=== PATIENT | male | born 1955 | race Caucasian/White ===

== ENCOUNTER 2020-09-27 15:15 | Outpatient (CLI) | payer MEDICARE, SELFPAY ==
--- NOTE | 2020-09-27 15:41 | XRR_ITS ---
PROCEDURE INFORMATION: Exam: XR Chest, 2 Views Exam date and time: 09/27/2020 4:05 PM Age: 65 years old Clinical indication: Other: Mass in neck; Additional info: Localized swelling, mass and lump, neck TECHNIQUE: Imaging protocol: XR of the chest Views: 2 views. COMPARISON: No relevant prior studies available. FINDINGS: Lungs: Unremarkable. No consolidation. Pleural space: Unremarkable. No pleural effusion. No pneumothorax. Heart/Mediastinum: Unremarkable. No cardiomegaly. Bones/joints: Unremarkable. XR/XR chest 2V* [id number] IMPRESSION: No acute findings.
--- NOTE | 2020-09-27 15:41 | XRR_ITS ---
PROCEDURE INFORMATION: Exam: XR Right Mandible, Minimum of 4 Views, Complete Exam date and time: 09/27/2020 4:05 PM Age: 65 years old Clinical indication: Other: Neck/jaw pain; Prior surgery; Additional info: Localized swelling, mass and lump, neck TECHNIQUE: Imaging protocol: XR of the Right mandible, minimum of 4 views. Complete exam. COMPARISON: No relevant prior studies available. FINDINGS: Sinuses: Well aerated. No opacification. Bones/joints: There is an apparent comminuted displaced fracture of the right mandible. The bone components appear displaced. . There tooth implant prosthesis in the anterior central portion of the mandible. Soft tissues: Unremarkable. XR/XR mandible min 4V [id number] IMPRESSION: Comminuted displaced fracture right mandible
[2020-09-27 16:48] LABS: Basophils # 0.1 10^3/uL (0.0-0.1); Basophils % 0.8 %; Eosinophils # 0.3 10^3/uL (0.0-0.8); Eosinophils % 3.2 %; Hematocrit 44.6 % (42.0-52.0); Hemoglobin 14.2 g/dL (11.7-16.6); Lymphocytes # 1.9 10^3/uL (0.8-4.8); Lymphocytes % 24.4 %; Mean Corpuscular HGB Conc 31.8 g/dL (30.0-36.0); Mean Corpuscular Hemoglobin 28.7 pg (28.0-34.0); Mean Corpuscular Volume 90.1 fL (80-94); Mean Platelet Volume 9.7 fL (7.4-10.4); Monocytes # 0.6 10^3/uL (0.2-0.9); Monocytes % 7.8 %; Neutrophils # 4.91 10^3/uL (1.8-7.7); Neutrophils % 63.5 %; Nucleated Red Blood Cells % 0 %; Platelet Count 336 10^3/cmm (130-400); Red Blood Count 4.95 10^6/uL (4.1-5.3); Red Cell Distribution Width 12.9 % (12.1-15.1); White Blood Count 7.7 10^3/uL (4.0-10.0)
[2020-09-27 17:00] LABS: INR 0.98 (0.8-1.2)
[2020-09-27 17:01] LABS: Partial Thromboplastin Time 30.3 SECONDS (23.9-36.7)
[2020-09-27 17:07] LABS: Alanine Aminotransferase 20 U/L (0-41); Albumin Level 4.2 g/dL (3.5-5.2); Alkaline Phosphatase 75 IU/L (40-130); Anion Gap 14.6 (5-19); Aspartate Amino Transferase 17 U/L (0-40); Blood Urea Nitrogen 16 mg/dL (8-23); Calcium 9.5 mg/dL (8.5-10.5); Carbon Dioxide 26 mmol/L (22-29); Chloride 100 mmol/L (98-107); Globulin 3.1 g/dL (1.3-4.6); Glucose 154 mg/dL (65-115); Osmolality Calculated 286 mOsm/kg (285-295); Potassium 4.6 mmol/L (3.5-5.1); Sodium 136 mmol/L (136-145); Total Bilirubin 0.9 mg/dL (0.15-1.2); Total Protein 7.3 g/dL (6.6-8.7)
[2020-09-27 17:44] LABS: Bilirubin Urine Neg (Negative); Blood Urine Neg (Negative); Glucose Urine UA 4+ (Normal); Ketones Urine Negative (Negative); Leukocyte Esterase Urine Negative (Negative); Nitrate Urine Negative (Negative); Protein Urine Trace (Negative); Specific Gravity, Urine 1.015 (1.005-1.030); Urine Appearance Clear (CLEAR); Urine Color Yellow (Yellow); Urobilinogen Urine Norm (Negative); pH Urine 5 (5-7)
[2020-09-27 17:45] LABS: Add Urine Culture? No; Bacteria Urine TRACE /hpf; Squamous Epithelial Cell Urine RARE /hpf (0-5); WBC Urine RARE /hpf (0-5)
== END 2020-09-27 15:16 | disposition home or self-care (01) ==
PROVIDERS: PCP Family Medicine; Visit Provider Specialist
DX: R22.1 Localized swelling, mass and lump, neck (principal); S02.69XA Fracture of mandible of other specified site, initial encounter for closed fracture
CPT/HCPCS: 36415; 70110; 71046; 80053; 81001; 85025; 85610; 85730

== ENCOUNTER 2020-09-29 10:18 | Outpatient (CLI) | payer MEDICARE, SELFPAY ==
--- NOTE | 2020-09-29 10:36 | CT_ITS ---
WS: [id number] CT NECK TECHNIQUE: Contrast-enhanced CT of the neck with coronal and sagittal reformatted images. CLINICAL INFORMATION: LOCALIZED SWELLING, MASS AND LUMP, NECK COMPARISON: None. DLP: 2966.[address] scans at [facility] use at least one of these dose optimization techniques: automat ed exposure control; mA and/or kV adjustment per patient size (includes targeted exams where dose is matched to clinical indication); or iterative reconstruction. FINDINGS: Induration with soft tissue edema overlying the right facial soft tissues centered at the level of th e mandible. Anterior dental implants. Extensive osteopenia with destructive changes and pathologic fr acture involving the right mandibular ramus extending to the angle of the mandible. Associated destru ctive changes suspicious for osteomyelitis. In addition diffuse soft tissue edema involving the right aspect of the mandible with suspected subperiosteal peripheral enhancing phlegmon or abscess. Low-at tenuation collection measures approximately 4.5 x 2.1 CM. Thickening of the adjacent platysma. Reacti ve submandibular lymph nodes. Recommend correlation for infection. Tongue base is normal in appearance. Normal submandibular glands. Parotid glands are normal. Partiall y visualized intracranial contents demonstrate chronic lacunar infarcts in the left arndt radiata. M oderate spondylitic changes cervical spine. No evidence of supraglottic or glottic mass. Normal subgl ottic airway. A few small thyroid nodules largest in the right measuring 8 mm. Otherwise no cervical lymphadenopathy. Lung apices are well aerated. Paranasal sinuses and mastoid air cells well aerated. CT/CT neck w con* [id number] IMPRESSION: 1. Pathologic-appearing fracture involving the right mandibular ramus and angl e of the mandible with mild overlapping fracture fragments. Diffuse demineraliz ation involving the right mandible. 2. Findings suspicious for osteomyelitis with pathologic fracture and subperio steal phlegmon/abscess Adjacent soft tissue induration. Suspected phlegmon/absc ess measures 2.1 x 4.4 CM. 3. Inflammatory stranding and edema in the right aspect of the face. A few tal ctive lymph nodes. 4. Supraglottic and glottic airway are patent. 5. No other acute findings.
[2020-09-29] MEDS: iohexol 300 mg/mL 100 mL Btl IV (11:16)
== END 2020-09-29 10:19 | disposition home or self-care (01) ==
LOC: RADWPI 10:23
PROVIDERS: PCP Family Medicine; Visit Provider Specialist
DX: R22.1 Localized swelling, mass and lump, neck (principal); S02.641A Fracture of ramus of right mandible, initial encounter for closed fracture; X58.XXXA Exposure to other specified factors, initial encounter
CPT/HCPCS: 70491; Q9967

== ENCOUNTER 2020-09-29 12:14 | Emergency (ER) | payer MEDICARE, SELFPAY ==
[2020-09-29] VITALS (18 sets, daily range): BP systolic 134–172; BP diastolic 71–88; PULSE 62–79; RESP 15–18; TEMP 36.3–36.6; O2SAT 95–100; BMI 31.6
--- NOTE | 2020-09-29 12:46 | W.ED.NEUROSD ---
Documented by User: Jagdish Selfsen 09/29/20 18:13 HPI - Neuro Symptoms/Deficit General: Chief Complaint: Neuro Symptoms/Deficit Stated Complaint: Weakness, word salad Time Seen by Provider: 09/29/20 12:39 History of Present Illness: HPI Narrative: 65 year old male in with concerns of stroke like symptoms and confusion. This gentleman is being evaluated for head and neck cancer. The patient was scheduled to have a scan this morning when confusion and word salad developed. The patient is diabetic and hypertensive. No history of stroke previously. His is a retired ER nurse. He had some right sided weakness that has since resolved. Originally he went to [facility] after symptoms onset around 8:[address] was reportedly negative and symptoms improved so he signed out so he could go to get his imaging of this right sided mass that is under evaluation. The patient did have his scan and then it seems the symptoms have returned with confusion and word finding difficulty. Associated symptoms: Deny chest pain or headache(s) Review of Systems General: Reports: 10 or more systems reviewed and unremarkable except in HPI and below Const: Denies: fever(s), chills or body aches Eyes: Denies: change in vision ENMT: Reports: odynophagia Card: Denies: chest pain or palpitations Resp: Denies: dyspnea Musc: Reports: muscle weakness; Denies: neck pain or back pain Neuro: Reports: weakness in extremities, lack of coordination, difficulty walking, confusion, behavioral changes and difficulty communicating thoughts; Denies: headache(s) NIH stroke score NIHSS: Level Of Consciousness - 1a: 0 Level Of Consciousness Questions - 1b: Both Correct Level Of Consciousness Commands - 1c: Both Correct Best Gaze - 2: Normal Visual Pina - 3: No Visual Loss Facial Palsy - 4: Normal Motor Arm Right - 5: No Drift Motor Arm Left - 5: No Drift Motor Leg Right - 6: No Drift Motor Leg Left - 6: No Drift Limb Ataxia - 7: Absent Sensory - 8: Normal Best Language - 9: Mild/Moderate Aphasia Dysarthia - 10: Mild/Moderate Dysarthia Extinction And Inattention - 11: 0 Score: Total Score: 2 Physical Exam Const: COMMON NORMALS: no acute distress, average body habitus, patient oriented x3 and alert HENMT: COMMON NORMALS: normocephalic HEAD & SCALP: normal to inspection and normocephalic Neck/C-Spine: COMMON NORMALS: no meningeal signs Resp: COMMON NORMALS: normal respiratory effort EFFORT & INSPECTION: Yes able to speak in complete sentences Cardio: COMMON NORMALS: regular rate and regular rhythm RATE: regular rate RHYTHM: regular rhythm : COMMON NORMALS: Yes no CVA tenderness BLADDER/KIDNEY EXAM: Yes no CVA tenderness Back/Pelvis: COMMON NORMALS: no CVA tenderness Extremity: COMMON NORMALS: normal to inspection GENERAL: Yes normal exam except as noted Neuro: COMMON NORMALS: patient oriented x3, moves all extremities, no focal motor deficits, no sensory deficits noted and deep tendon reflexes 2+ bilaterally SENSORIUM/ORIENTATION: Yes alert MENINGEAL SIGNS: Yes no meningeal signs COORDINATION/BALANCE: [id number] test normal SPEECH: abnormal speech COORDINATION: [id number] test normal Course Vital Signs: Vital signs: Vital Signs Temperature 97.8 F 09/29/20 12:25 Pulse Rate 62 09/29/20 18:34 Respiratory Rate 18 09/29/20 18:34 Blood Pressure 172/80 09/29/20 18:34 Pulse Oximetry 98 09/29/20 18:34 MDM - Neuro Symptoms/Deficit MDM Narrative: Medical decision making narrative: 65 year old male in with acute stroke like symptoms that have now resolved in the face of possible infection / abscess. Differential diagnosis is broad but includes infectious and inflammatory etiologies of these deficits. Patient signed over to Dr. Randolph for disposition Lab Data: Labs: Lab Results 09/29/20 09/29/20 09/29/20 Range/Units 13:03 13:23 13:23 WBC 7.4 (4.0-10.0) 10^3/ uL RBC 5.00 (4.1-5.3) 10^6/u L Hgb 14.3 (11.7-16.6) g/dL Hct 44.0 (42.0-52.0) % MCV 88.0 (80-94) fL MCH 28.6 (28.0-34.0) pg MCHC 32.5 (30.0-36.0) g/dL RDW 12.7 (12.1-15.1) % Plt Count 321 (130-400) 10^3/c mm MPV 10.0 (7.4-10.4) fL Neut % (Auto) 63.6 % Lymph % (Auto) 24.8 % Collier % (Auto) 7.7 % Eos % (Auto) 3.0 % Baso % (Auto) 0.8 % Neut # (Auto) 4.68 (1.8-7.7) 10^3/u L Lymph # (Auto) 1.8 (0.8-4.8) 10^3/u L Collier # (Auto) 0.6 (0.2-0.9) 10^3/u L Eos # (Auto) 0.2 (0.0-0.8) 10^3/u L Baso # (Auto) 0.1 (0.0-0.1) 10^3/u L Nucleated RBC % (a uto) 0 % Nucleated RBCs # 0.0 /100WBC PT 13.60 (12.1-14.9) SECO NDS INR 1.01 (0.8-1.2) APTT 31.9 (23.9-36.7) SECO NDS Sodium (136-145) mmol/L Potassium (3.5-5.1) mmol/L Chloride (98-107) mmol/L Carbon Dioxide (22-29) mmol/L Anion Gap (5-19) BUN (8-23) mg/dL Creatinine (0.7-1.2) mg/dL GFR Calculation (90-130) mL/min Glucose (65-115) mg/dL POC Glucose 275 H (70-110) mg/dL Calculated Osmolal ity (285-295) mOsm/k g Calcium (8.5-10.5) mg/dL Total Bilirubin (0.15-1.2) mg/dL AST (0-40) U/L ALT (0-41) U/L Alkaline Phosphata se (40-130) IU/L Total Protein (6.6-8.7) g/dL Albumin (3.5-5.2) g/dL Globulin (1.3-4.6) g/dL Urine Color (Yellow) Urine Appearance (CLEAR) Urine pH (5-7) Ur Specific Gravit y (1.005-1.030) Urine Protein (Negative) Urine Glucose (UA) (Normal) Urine Ketones (Negative) Urine Blood (Negative) Urine Nitrate (Negative) Urine Bilirubin (Negative) Urine Urobilinogen (Negative) mg/dL Ur Leukocyte Savana ase (Negative) Urine RBC (0-2) /hpf Urine WBC (0-5) /hpf Ur Squamous Epith Cells (0-5) /hpf Amorphous Sediment Urine Bacteria (NONE) /hpf Urine Opiates Scre en (Negative) ng/mL Ur Barbiturates Sc reen (Negative) ng/mL Ur Phencyclidine S crn (Negative) ng/mL Ur Amphetamines Sc reen (Negative) ng/mL U Benzodiazepines Scrn (Negative) ng/mL Urine Cocaine Scre en (Negative) ng/mL U Marijuana (THC) Screen (Negative) ng/mL 09/29/20 09/29/20 09/29/20 Range/Units 13:23 13:40 13:40 WBC (4.0-10.0) 10^3/ uL RBC (4.1-5.3) 10^6/u L Hgb (11.7-16.6) g/dL Hct (42.0-52.0) % MCV (80-94) fL MCH (28.0-34.0) pg MCHC (30.0-36.0) g/dL RDW (12.1-15.1) % Plt Count (130-400) 10^3/c mm MPV (7.4-10.4) fL Neut % (Auto) % Lymph % (Auto) % Collier % (Auto) % Eos % (Auto) % Baso % (Auto) % Neut # (Auto) (1.8-7.7) 10^3/u L Lymph # (Auto) (0.8-4.8) 10^3/u L Collier # (Auto) (0.2-0.9) 10^3/u L Eos # (Auto) (0.0-0.8) 10^3/u L Baso # (Auto) (0.0-0.1) 10^3/u L Nucleated RBC % (a uto) % Nucleated RBCs # /100WBC PT (12.1-14.9) SECO NDS INR (0.8-1.2) APTT (23.9-36.7) SECO NDS Sodium 135 L (136-145) mmol/L Potassium 4.1 (3.5-5.1) mmol/L Chloride 99 (98-107) mmol/L Carbon Dioxide 25 (22-29) mmol/L Anion Gap 15.1 (5-19) BUN 14 (8-23) mg/dL Creatinine 1.1 (0.7-1.2) mg/dL GFR Calculation 67.0 L (90-130) mL/min Glucose 308 H (65-115) mg/dL POC Glucose (70-110) mg/dL Calculated Osmolal ity 292 (285-295) mOsm/k g Calcium 9.4 (8.5-10.5) mg/dL Total Bilirubin 1.3 H (0.15-1.2) mg/dL AST 16 (0-40) U/L ALT 21 (0-41) U/L Alkaline Phosphata se 82 (40-130) IU/L Total Protein 7.4 (6.6-8.7) g/dL Albumin 4.2 (3.5-5.2) g/dL Globulin 3.2 (1.3-4.6) g/dL Urine Color Yellow (Yellow) Urine Appearance Clear (CLEAR) Urine pH 5 (5-7) Ur Specific Gravit y 1.005 (1.005-1.030) Urine Protein 1+ H (Negative) Urine Glucose (UA) 4+ H (Normal) Urine Ketones Negative (Negative) Urine Blood Neg (Negative) Urine Nitrate Negative (Negative) Urine Bilirubin Neg (Negative) Urine Urobilinogen Norm (Negative) mg/dL Ur Leukocyte Savana ase Negative (Negative) Urine RBC 0-4 H (0-2) /hpf Urine WBC 0-4 H (0-5) /hpf Ur Squamous Epith Cells 0-4 H (0-5) /hpf Amorphous Sediment Not Reportable Urine Bacteria Trace (NONE) /hpf Urine Opiates Scre en Negative (Negative) ng/mL Ur Barbiturates Sc reen Negative (Negative) ng/mL Ur Phencyclidine S crn Negative (Negative) ng/mL Ur Amphetamines Sc reen Negative (Negative) ng/mL U Benzodiazepines Scrn Negative (Negative) ng/mL Urine Cocaine Scre en Negative (Negative) ng/mL U Marijuana (THC) Screen Negative (Negative) ng/mL Discharge Plan Discharge Patient Disposition: Xfer Other Clinical Impression: Acute osteomyelitis of mandible, Abscess of neck Condition: Stable Prescriptions: No Action B12 1 tab PO DAILY@0800 RF: 0 atorvastatin 40 mg tablet 40 mg PO BEDTIME@1999 RF: 0 glipizide 10 mg tablet extended release 24hr 10 mg PO DAILY@0800 RF: 0 tramadol 50 mg tablet 50 mg PO BID@799,1999 RF: 0 amlodipine 10 mg tablet 10 mg PO DAILY@0800 RF: 0 metformin 1,000 mg tablet 1,000 mg PO DAILY@08 RF: 0 metoprolol tartrate 50 mg tablet 50 mg PO BID@799,1999 RF: 0 ramipril 10 mg capsule 10 mg PO BID@799,1999 RF: 0 Vitamin D3 1 tab PO DAILY@0800 RF: 0 Tylenol 325 mg Tablet 325 - 650 mg PO Q4H PRN (Reason: Pain) RF: 0 Referrals: Stephane Murphy MD [Primary Care Provider] - Coding Level of Care Code ED Director Of Home Economics for Chg Fwd Exam Comprehensive Documented by User: Maisha Randolph MD 09/29/20 22:00 HPI - Neuro Symptoms/Deficit General: Chief Complaint: Neuro Symptoms/Deficit Stated Complaint: Weakness, word salad Time Seen by Provider: 09/29/20 12:39 Course Vital Signs: Vital signs: Vital Signs Temperature 97.8 F 09/29/20 12:25 Pulse Rate 62 09/29/20 18:34 Respiratory Rate 18 09/29/20 18:34 Blood Pressure 172/80 09/29/20 18:34 Pulse Oximetry 98 09/29/20 18:34 MDM - Neuro Symptoms/Deficit MDM Narrative: Medical decision making narrative: I took patient over from Dr. Keegan waldron. Patient was pending an MRI. Is looking for MRI study results at 7 PM and they had not been sent to [facility] for some reason so had text sent the MRI. MRI shows no acute findings and no signs of acute stroke. Unsure what is causing patient's intermittent word salad and weakness. Patient not a TPA candidate as this been going on since this morning. I did review his CT scan of his neck that was done earlier today he does have an osteomyelitis over his right mandible along with a pathologic fracture and a 2 x 4 cm phlegmon abscess. I spoke to [facility] and will transfer there for higher level of care as patient needs ENT or OMF. Patient's been protecting his airway here. Patient's blood work here is normal and I started him on Unasyn. Lab Data: Labs: Lab Results 09/29/20 09/29/20 09/29/20 Range/Units 13:03 13:23 13:23 WBC 7.4 (4.0-10.0) 10^3/ uL RBC 5.00 (4.1-5.3) 10^6/u L Hgb 14.3 (11.7-16.6) g/dL Hct 44.0 (42.0-52.0) % MCV 88.0 (80-94) fL MCH 28.6 (28.0-34.0) pg MCHC 32.5 (30.0-36.0) g/dL RDW 12.7 (12.1-15.1) % Plt Count 321 (130-400) 10^3/c mm MPV 10.0 (7.4-10.4) fL Neut % (Auto) 63.6 % Lymph % (Auto) 24.8 % Collier % (Auto) 7.7 % Eos % (Auto) 3.0 % Baso % (Auto) 0.8 % Neut # (Auto) 4.68 (1.8-7.7) 10^3/u L Lymph # (Auto) 1.8 (0.8-4.8) 10^3/u L Collier # (Auto) 0.6 (0.2-0.9) 10^3/u L Eos # (Auto) 0.2 (0.0-0.8) 10^3/u L Baso # (Auto) 0.1 (0.0-0.1) 10^3/u L Nucleated RBC % (a uto) 0 % Nucleated RBCs # 0.0 /100WBC PT 13.60 (12.1-14.9) SECO NDS INR 1.01 (0.8-1.2) APTT 31.9 (23.9-36.7) SECO NDS Sodium (136-145) mmol/L Potassium (3.5-5.1) mmol/L Chloride (98-107) mmol/L Carbon Dioxide (22-29) mmol/L Anion Gap (5-19) BUN (8-23) mg/dL Creatinine (0.7-1.2) mg/dL GFR Calculation (90-130) mL/min Glucose (65-115) mg/dL POC Glucose 275 H (70-110) mg/dL Calculated Osmolal ity (285-295) mOsm/k g Calcium (8.5-10.5) mg/dL Total Bilirubin (0.15-1.2) mg/dL AST (0-40) U/L ALT (0-41) U/L Alkaline Phosphata se (40-130) IU/L Total Protein (6.6-8.7) g/dL Albumin (3.5-5.2) g/dL Globulin (1.3-4.6) g/dL Urine Color (Yellow) Urine Appearance (CLEAR) Urine pH (5-7) Ur Specific Gravit y (1.005-1.030) Urine Protein (Negative) Urine Glucose (UA) (Normal) Urine Ketones (Negative) Urine Blood (Negative) Urine Nitrate (Negative) Urine Bilirubin (Negative) Urine Urobilinogen (Negative) mg/dL Ur Leukocyte Savana ase (Negative) Urine RBC (0-2) /hpf Urine WBC (0-5) /hpf Ur Squamous Epith Cells (0-5) /hpf Amorphous Sediment Urine Bacteria (NONE) /hpf Urine Opiates Scre en (Negative) ng/mL Ur Barbiturates Sc reen (Negative) ng/mL Ur Phencyclidine S crn (Negative) ng/mL Ur Amphetamines Sc reen (Negative) ng/mL U Benzodiazepines Scrn (Negative) ng/mL Urine Cocaine Scre en (Negative) ng/mL U Marijuana (THC) Screen (Negative) ng/mL 09/29/20 09/29/20 09/29/20 Range/Units 13:23 13:40 13:40 WBC (4.0-10.0) 10^3/ uL RBC (4.1-5.3) 10^6/u L Hgb (11.7-16.6) g/dL Hct (42.0-52.0) % MCV (80-94) fL MCH (28.0-34.0) pg MCHC (30.0-36.0) g/dL RDW (12.1-15.1) % Plt Count (130-400) 10^3/c mm MPV (7.4-10.4) fL Neut % (Auto) % Lymph % (Auto) % Collier % (Auto) % Eos % (Auto) % Baso % (Auto) % Neut # (Auto) (1.8-7.7) 10^3/u L Lymph # (Auto) (0.8-4.8) 10^3/u L Collier # (Auto) (0.2-0.9) 10^3/u L Eos # (Auto) (0.0-0.8) 10^3/u L Baso # (Auto) (0.0-0.1) 10^3/u L Nucleated RBC % (a uto) % Nucleated RBCs # /100WBC PT (12.1-14.9) SECO NDS INR (0.8-1.2) APTT (23.9-36.7) SECO NDS Sodium 135 L (136-145) mmol/L Potassium 4.1 (3.5-5.1) mmol/L Chloride 99 (98-107) mmol/L Carbon Dioxide 25 (22-29) mmol/L Anion Gap 15.1 (5-19) BUN 14 (8-23) mg/dL Creatinine 1.1 (0.7-1.2) mg/dL GFR Calculation 67.0 L (90-130) mL/min Glucose 308 H (65-115) mg/dL POC Glucose (70-110) mg/dL Calculated Osmolal ity 292 (285-295) mOsm/k g Calcium 9.4 (8.5-10.5) mg/dL Total Bilirubin 1.3 H (0.15-1.2) mg/dL AST 16 (0-40) U/L ALT 21 (0-41) U/L Alkaline Phosphata se 82 (40-130) IU/L Total Protein 7.4 (6.6-8.7) g/dL Albumin 4.2 (3.5-5.2) g/dL Globulin 3.2 (1.3-4.6) g/dL Urine Color Yellow (Yellow) Urine Appearance Clear (CLEAR) Urine pH 5 (5-7) Ur Specific Gravit y 1.005 (1.005-1.030) Urine Protein 1+ H (Negative) Urine Glucose (UA) 4+ H (Normal) Urine Ketones Negative (Negative) Urine Blood Neg (Negative) Urine Nitrate Negative (Negative) Urine Bilirubin Neg (Negative) Urine Urobilinogen Norm (Negative) mg/dL Ur Leukocyte Savana ase Negative (Negative) Urine RBC 0-4 H (0-2) /hpf Urine WBC 0-4 H (0-5) /hpf Ur Squamous Epith Cells 0-4 H (0-5) /hpf Amorphous Sediment Not Reportable Urine Bacteria Trace (NONE) /hpf Urine Opiates Scre en Negative (Negative) ng/mL Ur Barbiturates Sc reen Negative (Negative) ng/mL Ur Phencyclidine S crn Negative (Negative) ng/mL Ur Amphetamines Sc reen Negative (Negative) ng/mL U Benzodiazepines Scrn Negative (Negative) ng/mL Urine Cocaine Scre en Negative (Negative) ng/mL U Marijuana (THC) Screen Negative (Negative) ng/mL Discharge Plan Discharge Patient Disposition: Xfer Other Clinical Impression: Acute osteomyelitis of mandible, Abscess of neck Condition: Stable Prescriptions: No Action B12 1 tab PO DAILY@0800 RF: 0 atorvastatin 40 mg tablet 40 mg PO BEDTIME@1999 RF: 0 glipizide 10 mg tablet extended release 24hr 10 mg PO DAILY@0800 RF: 0 tramadol 50 mg tablet 50 mg PO BID@ RF: 0 amlodipine 10 mg tablet 10 mg PO DAILY@0800 RF: 0 metformin 1,000 mg tablet 1,000 mg PO DAILY@0800 RF: 0 metoprolol tartrate 50 mg tablet 50 mg PO BID@799,1999 RF: 0 ramipril 10 mg capsule 10 mg PO BID@799,1999 RF: 0 Vitamin D3 1 tab PO DAILY@0800 RF: 0 Tylenol 325 mg Tablet 325 - 650 mg PO Q4H PRN (Reason: Pain) RF: 0 Referrals: Stephane Murphy MD [Primary Care Provider] - Coding Level of Care Code ED Director Of Home Economics for g Fwd Exam Comprehensive
--- NOTE | 2020-09-29 12:47 | MRR_ITS ---
PROCEDURE INFORMATION: Exam: MR Angiogram Head Without Contrast, Arteries Exam date and time: 09/29/2020 3:46 PM Age: 65 years old Clinical indication: Speech disturbance and other: RT jaw pain; Prior surgery; Additional info: Stroke like symptoms, negative CT head TECHNIQUE: Imaging protocol: MR angiogram head without contrast. Exam focused on the arteries. COMPARISON: CT head wo con* [id number] 09/29/2020 8:24 AM FINDINGS: ANTERIOR CIRCULATION: Right internal carotid artery: Intracranial segment is patent with no significant stenosis. No aneurysm. Right middle cerebral artery: No occlusion or significant stenosis. No aneurysm. Right anterior cerebral artery: No occlusion or significant stenosis. No aneurysm. Aplastic right A1 segment. Left internal carotid artery: The left ICA is larger than the right consistent with the left ICA supplying both anterior cerebral arteries. Normal variant. Left middle cerebral artery: No occlusion or significant stenosis. No aneurysm. Left anterior cerebral artery: Dominant left A1 segment which supplies both anterior cerebral arteries. Normal variant. POSTERIOR CIRCULATION: Right vertebral artery: Codominant vertebral arteries. Left vertebral artery: No occlusion or significant stenosis. No aneurysm. Basilar artery: No occlusion or significant stenosis. No aneurysm. Right posterior cerebral artery: No occlusion or significant stenosis. No aneurysm. Left posterior cerebral artery: Direct origin of the left posterior cerebral artery from the anterior circulation. MR/MR angio head wo con [id number] IMPRESSION: No large vessel occlusion.
--- NOTE | 2020-09-29 12:48 | ECG_ITS ---
[facility] Test Date: 2020-09-29 Pat Name: Carl Gill Department: Room: Gender: Male Manager Hydraulic: : 1955 Requested By: Jagdish Ozuna Order Number: [id number] Carmen MD: Katey Olson M.D. Measurements Intervals [place] Rate: 62 P: -16 SC: 189 QRS: 21 QRSD: 97 T: -17 QT: 421 QTc: 429 Interpretive Statements SINUS RHYTHM NONSPECIFIC ST & T-WAVE ABNORMALITY No previous ECG available for comparison Electronically Signed On 09-29-2020 21:26:08 MATERIALS BUYER by Katey Olson M.D. [id number]
[2020-09-29 13:13] LABS: Glucose Point of Care 275 mg/dL (70-110)
[2020-09-29 13:46] LABS: Basophils # 0.1 10^3/uL (0.0-0.1); Basophils % 0.8 %; Eosinophils # 0.2 10^3/uL (0.0-0.8); Hemoglobin 14.3 g/dL (11.7-16.6); Lymphocytes # 1.8 10^3/uL (0.8-4.8); Lymphocytes % 24.8 %; Mean Corpuscular HGB Conc 32.5 g/dL (30.0-36.0); Mean Corpuscular Hemoglobin 28.6 pg (28.0-34.0); Monocytes # 0.6 10^3/uL (0.2-0.9); Monocytes % 7.7 %; Neutrophils # 4.68 10^3/uL (1.8-7.7); Neutrophils % 63.6 %; Nucleated Red Blood Cells % 0 %; Platelet Count 321 10^3/cmm (130-400); Red Cell Distribution Width 12.7 % (12.1-15.1); White Blood Count 7.4 10^3/uL (4.0-10.0)
[2020-09-29 14:06] LABS: INR 1.01 (0.8-1.2)
[2020-09-29 14:07] LABS: Partial Thromboplastin Time 31.9 SECONDS (23.9-36.7)
[2020-09-29 14:15] LABS: Amphetamines Screen Urine Negative (Negative); Barbiturates Screen Urine Negative (Negative); Benzodiazepines Screen Urine Negative (Negative); Cocaine Screen Urine Negative (Negative); Opiate Screen Urine Negative (Negative); PCP Screen Urine Negative (Negative); THC Screen Urine Negative (Negative)
[2020-09-29 14:22] LABS: Alanine Aminotransferase 21 U/L (0-41); Albumin Level 4.2 g/dL (3.5-5.2); Alkaline Phosphatase 82 IU/L (40-130); Anion Gap 15.1 (5-19); Aspartate Amino Transferase 16 U/L (0-40); Blood Urea Nitrogen 14 mg/dL (8-23); Calcium 9.4 mg/dL (8.5-10.5); Carbon Dioxide 25 mmol/L (22-29); Chloride 99 mmol/L (98-107); Globulin 3.2 g/dL (1.3-4.6); Glucose 308 mg/dL (65-115); Osmolality Calculated 292 mOsm/kg (285-295); Potassium 4.1 mmol/L (3.5-5.1); Sodium 135 mmol/L (136-145); Total Bilirubin 1.3 mg/dL (0.15-1.2); Total Protein 7.4 g/dL (6.6-8.7)
[2020-09-29 14:44] LABS: Add Urine Microscopic? YES; Bilirubin Urine Neg (Negative); Blood Urine Neg (Negative); Glucose Urine UA 4+ (Normal); Ketones Urine Negative (Negative); Leukocyte Esterase Urine Negative (Negative); Nitrate Urine Negative (Negative); Protein Urine 1+ (Negative); Specific Gravity, Urine 1.005 (1.005-1.030); Urine Appearance Clear (CLEAR); Urine Color Yellow (Yellow); Urobilinogen Urine Norm (Negative); pH Urine 5 (5-7)
[2020-09-29 14:45] LABS: Add Urine Culture? No; Bacteria Urine TRACE /hpf; RBC Urine 0-4 /hpf (0-2); Squamous Epithelial Cell Urine 0-4 /hpf (0-5); WBC Urine 0-4 /hpf (0-5)
[2020-09-29] MEDS: fentaNYL 50 mcg/mL INJ 2mL IVP (17:57)
--- NOTE | 2020-09-29 18:40 | PC.NURSE ---
PT TO MRI AT 1600. RETURNED TO ED AT 1705.
[2020-09-29] MEDS: ampicillin-sulbactam 3 GM in sodium chloride 0.9% (plus) 50 ML IV (20:53)
[2020-09-29] MEDS: morphine 4 mg/mL SDV 1 mL IVP (21:28)
== END 2020-09-29 22:20 | disposition other institution (70) ==
PROVIDERS: Family Medicine; Emergency Provider Emergency Medicine; PCP Family Medicine
DX: M27.2 Inflammatory conditions of jaws (principal); L02.11 Cutaneous abscess of neck; Z79.899 Other long term (current) drug therapy
CPT/HCPCS: 12345; 36416; 70544; 80053; 80306; 81001; 82962; 85025; 85610; 85730; 93005; 96374; 96375; 99283; 99285; J0295; J2270; J3010

== ENCOUNTER 2020-10-21 09:50 | Outpatient (CLI) | payer MEDICARE, SELFPAY ==
--- NOTE | 2020-10-21 10:01 | CT_ITS ---
WS: [id number] CTA ABDOMINAL AORTA WITH RUNOFF TECHNIQUE: Contrast enhanced CTA of the abdominal aorta with bilateral lower extremity runoff. Multip lanar reformatted images were obtained. MIP reformats were also reviewed. CLINICAL INFORMATION: CEREBROVASCULAR INFARCTION/ACCIDENT COMPARISON: None. DLP: 1659.[address] scans at [facility] use at least one of these dose optimization techniques: automat ed exposure control; mA and/or kV adjustment per patient size (includes targeted exams where dose is matched to clinical indication); or iterative reconstruction. FINDINGS: Distal abdominal aorta is normal in appearance. Sigmoid diverticulosis. No evidence of acut e diverticulitis. RIGHT: Right common iliac artery is patent. Right external iliac artery is patent. Internal iliac art juliocesar is patent. Common femoral artery and superficial femoral arteries are patent. Deep femoral artery is patent. Mild atheromatous disease in the distal SFA and popliteal artery at the adductor hiatus. No flow-limiting stenosis. Popliteal artery is patent to the trifurcation. Moderate calcified atherom atous disease at the trifurcation. Poor lower extremity runoff distally. Poor flow at the level of th e ankle. Dominant peroneal artery. LEFT: Left common iliac artery is patent. External and internal iliac arteries are patent. Dense calc ification in the internal iliac artery. Mild atheromatous disease in the superficial femoral artery p roximally. Superficial femoral artery is patent to the adductor hiatus. Mild atheromatous disease in the popliteal artery without flow-limiting stenosis. Popliteal artery is patent to the trifurcation. Poor intermittent flow to the level of the ankle. CT/[place] [id number] IMPRESSION: 1. Poor bilateral distal runoff to both ankles with atretic calf arteries with intermittent flow. Proximal vessels are patent. 2. No large vessel flow-limiting stenosis to the level of the trifurcation bel ow the knee. 3. Mild atheromatous disease in the superficial femoral arteries and popliteal arteries bilaterally without significant stenosis.
--- NOTE | 2020-10-21 10:01 | USCV_ITS ---
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 The following venous structures were evaluated: common femoral vein, profunda vein, proximal portion of the greater saphenous vein, superficial femoral vein, and the popliteal vein. In addition, the posterior tibial and peroneal trunk were evaluated. Serial compression, augmentation maneuvers, and spectral Doppler flow evaluation were performed. FINDINGS: No DVT seen in any vessel examined CONCLUSIONS No evidence of right lower extremity DVT. No evidence of left lower extremity DVT. Arturo Ortiz MD (Electronically Signed) Final Date: 21 October 2020 17:54 S
[2020-10-21] MEDS: iohexol 350 mg/mL 100 mL Btl IV (11:00)
== END 2020-10-21 09:51 | disposition home or self-care (01) ==
LOC: RAD 09:54
PROVIDERS: PCP Family Medicine; Visit Provider Family Medicine
DX: I63.9 Cerebral infarction, unspecified (principal); Z01.818 Encounter for other preprocedural examination; I70.8 Atherosclerosis of other arteries
CPT/HCPCS: 73706; 93970

== ENCOUNTER 2020-12-22 13:01 | Outpatient (RCR) | payer MEDICARE, SELFPAY ==
[2020-12-22 15:38] LABS: Basophils # 0.1 10^3/uL (0.0-0.1); Basophils % 0.8 %; Eosinophils # 0.4 10^3/uL (0.0-0.8); Eosinophils % 4.5 %; Hematocrit 38.2 % (42.0-52.0); Hemoglobin 12.1 g/dL (11.7-16.6); Lymphocytes # 1.7 10^3/uL (0.8-4.8); Lymphocytes % 21.2 %; Mean Corpuscular HGB Conc 31.7 g/dL (30.0-36.0); Mean Corpuscular Hemoglobin 28.6 pg (28.0-34.0); Mean Corpuscular Volume 90.3 fL (80-94); Mean Platelet Volume 10.4 fL (7.4-10.4); Monocytes # 0.8 10^3/uL (0.2-0.9); Monocytes % 10.6 %; Neutrophils # 4.93 10^3/uL (1.8-7.7); Neutrophils % 62.8 %; Nucleated Red Blood Cells % 0 %; Platelet Count 347 10^3/cmm (130-400); Red Blood Count 4.23 10^6/uL (4.1-5.3); Red Cell Distribution Width 14.7 % (12.1-15.1); White Blood Count 7.8 10^3/uL (4.0-10.0)
[2020-12-22 15:58] LABS: Alanine Aminotransferase 39 U/L (0-41); Albumin Level 3.6 g/dL (3.5-5.2); Alkaline Phosphatase 101 IU/L (40-130); Anion Gap 13.4 (5-19); Aspartate Amino Transferase 20 U/L (0-40); Blood Urea Nitrogen 42 mg/dL (8-23); Calcium 9.4 mg/dL (8.5-10.5); Carbon Dioxide 29 mmol/L (22-29); Chloride 94 mmol/L (98-107); Globulin 3.6 g/dL (1.3-4.6); Glomerular Filtration Rate 96.7 mL/min (90-130); Glucose 224 mg/dL (65-115); Osmolality Calculated 291 mOsm/kg (285-295); Potassium 4.4 mmol/L (3.5-5.1); Sodium 132 mmol/L (136-145); Total Bilirubin 0.5 mg/dL (0.15-1.2); Total Protein 7.2 g/dL (6.6-8.7)
--- NOTE | 2020-12-22 17:15 | ONC CON_ITS ---
Dr. Barraza New Patient Note Patient: Carl Gill Unit #: [id number]: 1955 Dicatated By: Eduardo Barraza M.D.Date of Visit: Dec 22, 2020 Onc MED New Patient/Consult Referring Physician: [facility] History of Present Illness: Mr. Carl Gill, is a 65-year-old gentleman with a history of right oral cavity pain and swelling since June or July 2020, as per patient he was prescribed antibiotics on multiple occasion without any improvement rather pain and swelling in his right oral cavity continue to progress eventually he was referred to ENT for evaluation CT scan of the head and neck done on September 30, 2020 showed soft tissue lesion adjacent to the right mandible causing destruction of the right mandible and an associated pathological fracture and there was no obvious lymphadenopathy in the neck, and on November 01, 2020 he underwent right hemimandibulectomy with right modified radical neck dissection of levels 1 through 5 along with placement of tracheostomy and with right forearm free flap and right pectoralis major flap for reconstruction. 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 1 of 4 level 1A lymph node was involved with malignancy without extranodal extension. 3 additional right neck level 2 lymph nodes were none involved and 15 additional right level 2A lymph nodes that were not involved. To right level 3 lymph nodes were negative and 6 right level 4 lymph node were negative. Primary site was 6.2 cm in size invasive squamous cell carcinoma, moderately differentiated, invading through cortical bone with positive soft tissue margins and bone margins. There was perineural invasion as well as lymphovascular space invasion. There was a lymph node removed with the tumor itself was 1.5 cm in size with extranodal extension present. Overall stage was T4A, N3B, M0 Patient also had episode of stroke just before involving his thalamus, now has recovered and on aspirin and Plavix. Past medical history significant for hypertension, hyperlipidemia, obesity, type 2 diabetes Patient denies smoking but he used to chew tobacco up to diagnosis Denies any mouth sores, denies any dysphagia, denies any chest pain denies any shortness of breath denies any jaundice denies any new bony pains denies any hemoptysis or hematemesis. Past Medical History: Mr. Gill's medical history consists of hyperlipidemia, hypertension, type II diabetes, and stroke in 2019. Past Surgical History: Mr. Gill's surgical/procedural history consists of cholecystectomy, tracheostomy, and right hemimandibulectomy in 2020. Medications: amLODIPine Besylate 1 Tablet (of 5 mg) Oral daily, Aspirin 81 1 Tablet (of 81 mg) Tablet, chewable Oral every am, Atorvastatin Calcium 1 Tablet (of 40 mg) Oral daily, B-12 1 Caplet (of 1000 mcg) Capsule Oral every am, Cholecalciferol 1 Tablet (of 125 mcg ) Oral daily, Clopidogrel Bisulfate 1 Tablet (of 75 mg) Oral daily, Escitalopram Oxalate 1 Tablet (of 10 mg) Oral every am, Glucerna 1.5 Luis Manuel 400 mL Liquid Oral t.i.d. & at bedtime, Lisinopril 1 Tablet (of 5 mg) Oral every am, Melatonin 2 Caplet (of 3 mg) Capsule Oral daily, Metoprolol Tartrate 1 Tablet (of 50 mg) Oral b.i.d., Omeprazole 20 mL (of 2 mg/mL) Suspension Oral every am, Polyethylene Glycol 1 Scoop(s) Powder PRN, QUEtiapine Fumarate 0.5 Tablet (of 25 mg) Oral b.i.d., Senna Plus 2 Caplet (of 50-8.6 mg) Capsule Oral daily Allergies: No Known Allergies. Social History: Mr. Gill is . Mr. Gill has never smoked. He has no history of drinking. used chewing tobacco until time of diagnosis. Family History: Mr. Gill's mother at age 88. Mr. Gill's father at age 83. Review Of Symptoms: Review of Systems is not available for this patient. Vital Signs: Performed on Dec 22, 2020 13:54: 0, 0, 0.00 (LOW), sq.m, 98 %, 63 /min, 18 /min, 142/71 mm(hg) (HIGH), 97.1 F (LOW), and 209 lbs (HIGH). Performance Status: 1 - No physically strenuous activity, but ambulatory and able to carry out light or sedentary work (e.g. office work, light house work). (ECOG) Physical Examination: ENMT - , Status post right radical neck dissection/hemimandibulectomy status post reconstruction, tracheostomy site clean no discharge, Respiratory - Lungs are clear to auscultation, Cardiovascular - Regular rate and rhythm of heart, Abdomen - Soft, bowel sounds present, Extremities - No visible edema. Lab/Imaging: Most recent lab results are not available for this patient. Impression: Invasive squamous cell carcinoma, moderately differentiated status post right hemimandibulectomy with right modified radical neck dissection of levels 1 through 5 along with placement of the tracheostomy and a right forearm free flap and right pectoralis major flap for reconstruction. Done on November 01, [address] [facility] final pathology report showed 6.2 cm size invasive squamous cell carcinoma moderately differentiated p16 negative, invading through the cortical bone with a positive margin and positive soft tissue margin there was perineural invasion as well as lymphovascular space invasion. There was a lymph node removed with the tumor itself size about 1.5 cm with extranodal extension present. 1 of 4 level 1 lymph node was involved with malignancy without extranodal extension. 3 additional right neck level 2 lymph nodes were noninvolved and 15 additional right level 2 lymph node were not involved. To right level 3 nodes were negative and 6 right level 4 lymph nodes were negative. stage p T4a, N3B, M0 IVb History of confusion and stroke on 2019, diagnosed with thalamic stroke Follow-up CT scan of head done on December 02, 2020 showed no evidence of acute intracranial abnormality. Stable appearance of multiple scattered old lacunar infarcts. History of tobacco chew Type 2 diabetes Hypertension Plan: Discussed with patient regarding his disease status and treatment options, patient and his had extensive discussion regarding treatment options with radiation oncology as well as medical oncologist at [facility] in [facility], patient was recommended combined chemoradiation therapy with weekly cisplatin 30 to 40 mg per metered squared. Per patient's convenience, patient decided to come to cancer center in [place] for the treatment., All the side effect possible benefits associated with weekly cisplatin including but not limited to bone marrow suppression, nausea vomiting, renal toxicity, ototoxicity were mentioned, further teaching will done by chemotherapy nurse. We will obtain approval from his insurance prior to the treatment and consider cisplatin 30 mg/m??? weekly concurrent with radiation therapy. Patient scheduled see radiation oncology tomorrow morning. In the meantime we will obtain baseline CBC CMP to ensure adequate renal function test and nursing will evaluate him regarding IV access, patient may need Port-A-Cath placement. He will return to clinic 1 week after combined chemo radiation is initiated with CBC and CMP Signed By: Eduardo Barraza M.D. <<Signature on File>>
--- NOTE | 2020-12-23 14:32 | N.ONRAD NP_ITS ---
Radiation Oncology Consultation Patient Name: Carl Gill Date of : 1955 Date of Service: 12/23/2020 Attending Physician: Reji Payne M.D. Carl Gill was seen in consultation this afternoon evaluation regarding adjuvant head and neck radiotherapy for the management of a recently diagnosed oral cavity carcinoma. The patient was referred to the [facility] in September 2020 for CVA management and progressive right mandibular swelling. CT of the neck ordered on October 04, 2020 revealed a 7.1 cm x 3.4 cm x 5.7 cm soft tissue mass in the buccal mucosa of the right mandible with a lytic erosion of the right mandibular ramus and body associated with a pathological fracture. A PET CT (requested from the outside hospital and independently reviewed in [facility]) completed on October 18, 2019 demonstrated hypermetabolic activity in the mandibular mass without metastatic disease. A biopsy obtained on 10/04/2020 of the right buccal mucosa diagnosed a moderately differentiated keratinizing invasive squamous cell carcinoma. A wide local excision with hemimandibulectomy, unilateral neck dissection, and reconstruction with an osteocutaneous radial free flap replacement was performed on 11/01/2020 by Marlyn Gamble M.D. The pathology (report personally reviewed) confirmed the diagnosis of a 6.2 cm moderately differentiated squamous cell carcinoma with a tumor depth of invasion of 4.1 cm and the presence of lymphovascular/perineural invasion. A total of 32 lymph nodes were harvested with two level I lymph nodes harboring metastatic disease (largest metastatic deposit was 1.5 cm of with one lymph node demonstrating extranodal extension). Surgical margins were positive (bone and soft tissue). The patient presents for discussion regarding consideration for postoperative radiotherapy. I discussed with Mr. Gill the AJCC pathological stage IVB (T4aN3b) of the oral cavity associated with his diagnosis and the National Comprehensive Cancer Network Guidelines for adjuvant chemoradiotherapy in patients with newly resected tumors and adverse features (i.e. positive margins, extranodal extension, lymphovascular invasion/perineural, pN2/pN3, or advanced tumors; pT3-pT4). I also reviewed the classic studies, - the EORTC 87288 and RTOG 9501 trials - that established this recommendation. The EORTC investigation demonstrated an overall survival advantage and improved locoregional control in the combined modality arm, while the RTOG study documented improved disease-free survival and locoregional control in a subgroup of patients with positive margins and extranodal extension. I would endorse a 6 1/2-week course of radiation therapy. Prior to beginning treatment, a radiotherapy planning CT scan with contrast will be acquired to delineate the clinical target volumes. I have requested a Wound Care consultation with reference to post-surgical dehiscence. I reviewed the potential toxicities of head and neck radiotherapy. The patient has verbalized understanding and would like to proceed as advocated. Signed by: Dr. Reji Payne 12/23/2020 2:31:32 PM
== END 2021-01-05 23:59 | disposition home or self-care (01) ==
LOC: ONCMED 13:01
PROVIDERS: PCP Family Medicine; Visit Provider Internal Medicine Hematology & Oncology
DX: C41.1 Malignant neoplasm of mandible (principal); E11.9 Type 2 diabetes mellitus without complications; I10 Essential (primary) hypertension; Z86.73 Personal history of transient ischemic attack (TIA), and cerebral infarction without residual deficits; Z87.891 Personal history of nicotine dependence; Z79.899 Other long term (current) drug therapy
CPT/HCPCS: 80053; 85025; 99205; 99215

== ENCOUNTER 2020-12-30 14:18 | Outpatient (CLI) | payer MEDICARE, SELFPAY | END 2020-12-30 14:19 | disposition home or self-care (01) | LOC: WOUND 14:20 | PROVIDERS: PCP Family Medicine; Visit Provider Nurse Practitioner Family | DX: L98.495 Non-pressure chronic ulcer of skin of other sites with muscle involvement without evidence of necrosis (principal); T81.89XA Other complications of procedures, not elsewhere classified, initial encounter; Y83.8 Other surgical procedures as the cause of abnormal reaction of the patient, or of later complication, without mention of misadventure at the time of the procedure | CPT/HCPCS: 87070; 87075; 87077; 87186; 87205; 99215 ==

== ENCOUNTER 2021-01-06 13:35 | Outpatient (CLI) | payer MEDICARE, SELFPAY | END 2021-01-06 13:36 | disposition home or self-care (01) | LOC: WOUND 13:36 | PROVIDERS: PCP Family Medicine; Visit Provider Thoracic Surgery (Cardiothoracic Vascular Surgery) | DX: T81.89XA Other complications of procedures, not elsewhere classified, initial encounter (principal); Y83.8 Other surgical procedures as the cause of abnormal reaction of the patient, or of later complication, without mention of misadventure at the time of the procedure; L98.495 Non-pressure chronic ulcer of skin of other sites with muscle involvement without evidence of necrosis | CPT/HCPCS: 11042; 11045 ==

== ENCOUNTER 2021-01-13 13:17 | Outpatient (CLI) | payer MEDICARE, SELFPAY | END 2021-01-13 13:18 | disposition home or self-care (01) | LOC: WOUND 13:18 | PROVIDERS: PCP Family Medicine; Visit Provider Thoracic Surgery (Cardiothoracic Vascular Surgery) | DX: T81.89XA Other complications of procedures, not elsewhere classified, initial encounter (principal) | CPT/HCPCS: 11042 ==

== ENCOUNTER 2021-01-14 14:14 | Outpatient (RCR) | payer MEDICARE, SELFPAY | END 2021-02-04 23:59 | disposition home or self-care (01) | LOC: SST 14:14 | PROVIDERS: PCP Family Medicine; Referring Provider Otolaryngology; Visit Provider Otolaryngology | DX: Z98.890 Other specified postprocedural states (principal) | CPT/HCPCS: 92610 ==

== ENCOUNTER 2021-01-20 13:40 | Outpatient (CLI) | payer MEDICARE, SELFPAY | END 2021-01-20 13:41 | disposition home or self-care (01) | LOC: WOUND 13:41 | PROVIDERS: PCP Family Medicine; Visit Provider Thoracic Surgery (Cardiothoracic Vascular Surgery) | DX: T81.89XA Other complications of procedures, not elsewhere classified, initial encounter (principal) | CPT/HCPCS: 97597 ==

== ENCOUNTER 2021-01-27 14:45 | Outpatient (CLI) | payer MEDICARE, SELFPAY | END 2021-01-27 14:46 | disposition home or self-care (01) | LOC: WOUND 14:46 | PROVIDERS: PCP Family Medicine; Visit Provider Thoracic Surgery (Cardiothoracic Vascular Surgery) | DX: T81.89XA Other complications of procedures, not elsewhere classified, initial encounter (principal) | CPT/HCPCS: G0463 ==

== ENCOUNTER 2021-02-07 10:55 | Outpatient (CLI) | payer MEDICARE, SELFPAY ==
[2021-02-07 11:55] LABS: Basophils # 0.1 10^3/uL (0.0-0.1); Basophils % 1.2 %; Eosinophils # 0.7 10^3/uL (0.0-0.8); Eosinophils % 10.4 %; Hematocrit 41.7 % (42.0-52.0); Hemoglobin 12.9 g/dL (11.7-16.6); Lymphocytes # 1.2 10^3/uL (0.8-4.8); Lymphocytes % 19.2 %; Mean Corpuscular HGB Conc 30.9 g/dL (30.0-36.0); Mean Corpuscular Hemoglobin 27.7 pg (28.0-34.0); Mean Corpuscular Volume 89.7 fL (80-94); Mean Platelet Volume 10.8 fL (7.4-10.4); Monocytes # 0.7 10^3/uL (0.2-0.9); Monocytes % 11.1 %; Neutrophils # 3.75 10^3/uL (1.8-7.7); Neutrophils % 57.9 %; Nucleated Red Blood Cells % 0 %; Platelet Count 285 10^3/cmm (130-400); Red Blood Count 4.65 10^6/uL (4.1-5.3); Red Cell Distribution Width 13.8 % (12.1-15.1); White Blood Count 6.5 10^3/uL (4.0-10.0)
[2021-02-07 12:24] LABS: Alanine Aminotransferase 35 U/L (0-41); Albumin Level 3.7 g/dL (3.5-5.2); Alkaline Phosphatase 86 IU/L (40-130); Anion Gap 14.6 (5-19); Aspartate Amino Transferase 25 U/L (0-40); Blood Urea Nitrogen 38 mg/dL (8-23); Calcium 8.9 mg/dL (8.5-10.5); Carbon Dioxide 26 mmol/L (22-29); Chloride 99 mmol/L (98-107); Globulin 3.2 g/dL (1.3-4.6); Glomerular Filtration Rate 96.4 mL/min (90-130); Glucose 110 mg/dL (65-115); Osmolality Calculated 290 mOsm/kg (285-295); Potassium 4.6 mmol/L (3.5-5.1); Sodium 135 mmol/L (136-145); Total Bilirubin 0.6 mg/dL (0.15-1.2); Total Protein 6.9 g/dL (6.6-8.7)
--- NOTE | 2021-02-07 18:35 | ONC FU_ITS ---
Dr. Barraza follow up note Patient: Carl Gill Unit #: [id number]: 1955 Dicatated By: Eduardo Barraza M.D.Date of Visit:February 07, 2021 Onc Med Follow-up/Prog Note History of Present Illness: Mr. Carl Gill, is a 65-year-old gentleman with a history of right oral cavity pain and swelling since June or July 2020, as per patient he was prescribed antibiotics on multiple occasion without any improvement rather pain and swelling in his right oral cavity continue to progress eventually he was referred to ENT for evaluation CT scan of the head and neck done on September 30, 2020 showed soft tissue lesion adjacent to the right mandible causing destruction of the right mandible and an associated pathological fracture and there was no obvious lymphadenopathy in the neck, and on November 01, 2020 he underwent right hemimandibulectomy with right modified radical neck dissection of levels 1 through 5 along with placement of tracheostomy and with right forearm free flap and right pectoralis major flap for reconstruction. 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 1 of 4 level 1A lymph node was involved with malignancy without extranodal extension. 3 additional right neck level 2 lymph nodes were none involved and 15 additional right level 2A lymph nodes that were not involved. To right level 3 lymph nodes were negative and 6 right level 4 lymph node were negative. Primary site was 6.2 cm in size invasive squamous cell carcinoma, moderately differentiated, invading through cortical bone with positive soft tissue margins and bone margins. There was perineural invasion as well as lymphovascular space invasion. There was a lymph node removed with the tumor itself was 1.5 cm in size with extranodal extension present. Overall stage was T4A, N3B, M0 Patient also had episode of stroke just before [place] involving his thalamus, now has recovered and on aspirin and Plavix. Past medical history significant for hypertension, hyperlipidemia, obesity, type 2 diabetes Patient denies smoking but he used to chew tobacco up to diagnosis Denies any mouth sores, denies any dysphagia, denies any chest pain denies any shortness of breath denies any jaundice denies any new bony pains denies any hemoptysis or hematemesis. Came for follow-up, complaining of right neck flap discomfort and swelling. But no fever chills, no nausea or vomiting, no diarrhea constipation, patient being managed by wound care clinic and patient scheduled to see clinician there today for clearance to proceed with adjuvant combined chemoradiation therapy. Medications: amLODIPine Besylate 1 Tablet (of 5 mg) Oral daily, Aspirin 81 1 Tablet (of 81 mg) Tablet, chewable Oral every am, Atorvastatin Calcium 1 Tablet (of 40 mg) Oral daily, B-12 1 Caplet (of 1000 mcg) Capsule Oral every am, Cholecalciferol 1 Tablet (of 125 mcg ) Oral daily, Clopidogrel Bisulfate 1 Tablet (of 75 mg) Oral daily, Escitalopram Oxalate 1 Tablet (of 10 mg) Oral every am, Glucerna 1.5 Luis Manuel 400 mL Liquid Oral t.i.d. & at bedtime, Lisinopril 1 Tablet (of 5 mg) Oral every am, Melatonin 2 Caplet (of 3 mg) Capsule Oral daily, Metoprolol Tartrate 1 Tablet (of 50 mg) Oral b.i.d., Omeprazole 20 mL (of 2 mg/mL) Suspension Oral every am, Polyethylene Glycol 1 Scoop(s) Powder PRN, QUEtiapine Fumarate 0.5 Tablet (of 25 mg) Oral b.i.d., Senna Plus 2 Caplet (of 50-8.6 mg) Capsule Oral daily Allergies: No Known Allergies. Review of Systems: Review of Systems is not available for this patient. Vital Signs: Performed on February 07, 2021 13:03 Height - 72.00 in Temperature - 98.4 F Pulse - 53 /min (LOW) Respiration - 18 /min BP - 122/66 mm(hg) O2 Sat - 98 % Pain - 0 Performance Status: 2 - Ambulatory/capable of all self-care, unable to perform any work activities. Up and about more than 50% of waking hours. (ECOG) Physical Examination: ENMT - Postsurgical changes in the right neck status post flap with some fullness and chronic wound, trach site without discharge, Respiratory - Poor air entry otherwise clear, Cardiovascular - Regular rate and rhythm of heart, Abdomen - Soft, bowel sounds present, Extremities - No visible edema. Lab/Imaging: Most recent lab results are not available for this patient. Impression: Invasive squamous cell carcinoma, moderately differentiated status post right hemimandibulectomy with right modified radical neck dissection of levels 1 through 5 along with placement of the tracheostomy and a right forearm free flap and right pectoralis major flap for reconstruction. Done on November 01, 2020 in [facility] final pathology report showed 6.2 cm size invasive squamous cell carcinoma moderately differentiated p16 negative, invading through the cortical bone with a positive margin and positive soft tissue margin there was perineural invasion as well as lymphovascular space invasion. There was a lymph node removed with the tumor itself size about 1.5 cm with extranodal extension present. 1 of 4 level 1 lymph node was involved with malignancy without extranodal extension. 3 additional right neck level 2 lymph nodes were noninvolved and 15 additional right level 2 lymph node were not involved. To right level 3 nodes were negative and 6 right level 4 lymph nodes were negative. stage p T4a, N3B, M0 IVb History of confusion and stroke on 2019, diagnosed with thalamic stroke Follow-up CT scan of head done on December 02, 2020 showed no evidence of acute intracranial abnormality. Stable appearance of multiple scattered old lacunar infarcts. History of tobacco chew Type 2 diabetes Hypertension Plan: Discussed with patient regarding his labs white blood count 6.5 hemoglobin 12.9 hematocrit 41.7 platelets 285,000 CMP within normal limits Clinically, patient doing reasonably well now with poor surgical complication like chronic wound in the right neck, being treated in wound care clinic, radiation oncology is awaiting wound care clinic clearance before starting radiation therapy along with weekly cisplatin patient is also complaining of infection in the left arm flap site. Case was discussed with Dr. Olmedo, ENT today as per discussion, patient still has a fingertip size chronic wound, as per his discussion with radiation oncology, radiation oncology wants to wait until complete healing but because of complication associated with combined chemoradiation therapy with chronic wound, it was recommended that patient should pursue adjuvant chemotherapy in tertiary care center, where he had his right radical neck dissection done e.g. in [facility]., Patient decided to proceed treatment here, then will consider Port-A-Cath placement once clearance from wound care clinic obtained and radiation oncology agreed to start adjuvant therapy., We already have approval for weekly cisplatin concurrent with radiation therapy Patient will return to clinic 1 week after combined chemoradiation therapy initiated with CBC CMP Signed By: Eduardo Barraza M.D. <<Signature on File>>
== END 2021-02-07 10:56 | disposition home or self-care (01) ==
LOC: ONCMED 10:57
PROVIDERS: PCP Family Medicine; Visit Provider Internal Medicine Hematology & Oncology
DX: C41.1 Malignant neoplasm of mandible (principal); C77.8 Secondary and unspecified malignant neoplasm of lymph nodes of multiple regions; F17.220 Nicotine dependence, chewing tobacco, uncomplicated; E11.9 Type 2 diabetes mellitus without complications; I10 Essential (primary) hypertension; Z79.899 Other long term (current) drug therapy
CPT/HCPCS: 80053; 85025; 99214

== ENCOUNTER 2021-02-10 13:54 | Outpatient (CLI) | payer MEDICARE, SELFPAY | END 2021-02-10 13:55 | disposition home or self-care (01) | LOC: WOUND 13:56 | PROVIDERS: PCP Family Medicine; Visit Provider Thoracic Surgery (Cardiothoracic Vascular Surgery) | DX: T81.89XA Other complications of procedures, not elsewhere classified, initial encounter (principal) | CPT/HCPCS: G0463 ==

== ENCOUNTER 2021-02-15 06:00 | Outpatient (RCR) | payer MEDICARE, SELFPAY | END 2021-03-07 23:59 | disposition home or self-care (01) | LOC: SST 06:00 | PROVIDERS: PCP Family Medicine; Referring Provider Otolaryngology; Visit Provider Otolaryngology | DX: Z93.0 Tracheostomy status (principal) | CPT/HCPCS: 92610 ==

== ENCOUNTER 2021-02-17 13:39 | Outpatient (CLI) | payer MEDICARE, SELFPAY | END 2021-02-17 13:40 | disposition home or self-care (01) | LOC: WOUND 13:40 | PROVIDERS: PCP Family Medicine; Visit Provider Thoracic Surgery (Cardiothoracic Vascular Surgery) | DX: T81.89XA Other complications of procedures, not elsewhere classified, initial encounter (principal) | CPT/HCPCS: G0463 ==

== ENCOUNTER 2021-02-24 14:02 | Outpatient (CLI) | payer MEDICARE, SELFPAY | END 2021-02-24 14:03 | disposition home or self-care (01) | LOC: WOUND 14:04 | PROVIDERS: PCP Family Medicine; Visit Provider Thoracic Surgery (Cardiothoracic Vascular Surgery) | DX: T81.89XA Other complications of procedures, not elsewhere classified, initial encounter (principal); Y83.8 Other surgical procedures as the cause of abnormal reaction of the patient, or of later complication, without mention of misadventure at the time of the procedure | CPT/HCPCS: 99212 ==

== ENCOUNTER 2021-03-03 13:52 | Outpatient (CLI) | payer MEDICARE, SELFPAY | END 2021-03-03 13:53 | disposition home or self-care (01) | LOC: WOUND 13:53 | PROVIDERS: PCP Family Medicine; Visit Provider Thoracic Surgery (Cardiothoracic Vascular Surgery) | DX: T81.89XA Other complications of procedures, not elsewhere classified, initial encounter (principal); Y83.8 Other surgical procedures as the cause of abnormal reaction of the patient, or of later complication, without mention of misadventure at the time of the procedure | CPT/HCPCS: 11043 ==

== ENCOUNTER 2021-03-08 06:00 | Outpatient (RCR) | payer MEDICARE, SELFPAY | END 2021-04-06 23:59 | disposition home or self-care (01) | LOC: SST 06:00 | PROVIDERS: PCP Family Medicine; Referring Provider Otolaryngology; Visit Provider Otolaryngology | DX: Z93.0 Tracheostomy status (principal) | CPT/HCPCS: 92507; 92526 ==

== ENCOUNTER 2021-03-10 13:36 | Outpatient (CLI) | payer MEDICARE, SELFPAY | END 2021-03-10 13:37 | disposition home or self-care (01) | LOC: WOUND 13:37 | PROVIDERS: PCP Family Medicine; Visit Provider Thoracic Surgery (Cardiothoracic Vascular Surgery) | DX: T81.89XA Other complications of procedures, not elsewhere classified, initial encounter (principal); Y83.8 Other surgical procedures as the cause of abnormal reaction of the patient, or of later complication, without mention of misadventure at the time of the procedure | CPT/HCPCS: 99212 ==

== ENCOUNTER 2021-03-17 10:45 | Outpatient (CLI) | payer MEDICARE, SELFPAY ==
--- NOTE | 2021-03-17 10:55 | FL_ITS ---
WS: [id number] Modified barium swallow, 03/17/2021 Clinical Data: Other dysphagia Comparison: None. Fluoroscopy time: 1.5 minutes. Findings: The patient has had resection of his mandible with reconstruction. He experiences incomplete lip seal and weak oropharyngeal function. There is penetration with all liquids and there is a single event o f aspiration. There is piriform sinus pooling. There is easier swallowing with thick liquids. There i s pharyngeal weakness. FL/FL barium swallow modifd [id number] Impression: 1. Weak oropharyngeal function. 2. Penetration with all liquids and a single event of aspiration. 3. Piriform sinus pooling. 4. Easier swallowing with thick liquids. 5. Pharyngeal weakness.
== END 2021-03-17 10:46 | disposition home or self-care (01) ==
LOC: RAD 10:48
PROVIDERS: PCP Family Medicine; Visit Provider Otolaryngology
DX: R13.10 Dysphagia, unspecified (principal)
CPT/HCPCS: 74230; 92611

== ENCOUNTER 2021-03-22 14:01 | Outpatient (CLI) | payer MEDICARE, SELFPAY ==
[2021-03-22 14:46] LABS: Basophils # 0.1 10^3/uL (0.0-0.1); Basophils % 0.9 %; Eosinophils # 0.6 10^3/uL (0.0-0.8); Eosinophils % 8.9 %; Hematocrit 42.4 % (42.0-52.0); Hemoglobin 13.2 g/dL (11.7-16.6); Lymphocytes # 1.2 10^3/uL (0.8-4.8); Lymphocytes % 17.9 %; Mean Corpuscular HGB Conc 31.1 g/dL (30.0-36.0); Mean Corpuscular Hemoglobin 27.6 pg (28.0-34.0); Mean Corpuscular Volume 88.5 fL (80-94); Mean Platelet Volume 11.1 fL (7.4-10.4); Monocytes # 0.7 10^3/uL (0.2-0.9); Neutrophils # 3.99 10^3/uL (1.8-7.7); Neutrophils % 61.3 %; Nucleated Red Blood Cells % 0 %; Platelet Count 244 10^3/cmm (130-400); Red Blood Count 4.79 10^6/uL (4.1-5.3); Red Cell Distribution Width 13.7 % (12.1-15.1); White Blood Count 6.5 10^3/uL (4.0-10.0)
[2021-03-22 15:24] LABS: Alanine Aminotransferase 22 U/L (0-41); Albumin Level 3.7 g/dL (3.5-5.2); Alkaline Phosphatase 81 IU/L (40-130); Anion Gap 12.6 (5-19); Aspartate Amino Transferase 17 U/L (0-40); Blood Urea Nitrogen 38 mg/dL (8-23); Calcium 8.8 mg/dL (8.5-10.5); Carbon Dioxide 29 mmol/L (22-29); Chloride 99 mmol/L (98-107); Globulin 3.1 g/dL (1.3-4.6); Glomerular Filtration Rate 96.4 mL/min (90-130); Glucose 130 mg/dL (65-115); Osmolality Calculated 293 mOsm/kg (285-295); Potassium 4.6 mmol/L (3.5-5.1); Sodium 136 mmol/L (136-145); Total Bilirubin 0.7 mg/dL (0.15-1.2); Total Protein 6.8 g/dL (6.6-8.7)
== END 2021-03-22 14:02 | disposition home or self-care (01) ==
PROVIDERS: PCP Family Medicine; Visit Provider Radiology Radiation Oncology
DX: C41.1 Malignant neoplasm of mandible (principal)
CPT/HCPCS: 80053; 85025

== ENCOUNTER 2021-03-24 13:53 | Outpatient (CLI) | payer MEDICARE, SELFPAY | END 2021-03-24 13:54 | disposition home or self-care (01) | LOC: WOUND 13:54 | PROVIDERS: PCP Family Medicine; Visit Provider Thoracic Surgery (Cardiothoracic Vascular Surgery) | DX: T81.89XA Other complications of procedures, not elsewhere classified, initial encounter (principal); Y83.8 Other surgical procedures as the cause of abnormal reaction of the patient, or of later complication, without mention of misadventure at the time of the procedure | CPT/HCPCS: G0463 ==

== ENCOUNTER → 2021-04-01 15:24 | Outpatient (BNVA) | payer MEDICARE, SELFPAY | PROVIDERS: PCP Family Medicine; Visit Provider Surgery | DX: Z85.819 Personal history of malignant neoplasm of unspecified site of lip, oral cavity, and pharynx (principal); Z20.822 Contact with and (suspected) exposure to COVID-19 | CPT/HCPCS: 87635 ==

== ENCOUNTER 2021-04-06 11:50 | Day surgery (SDC) | payer MEDICARE, SELFPAY ==
[2021-04-05 13:54] VITALS: BMI 27.5
[2021-04-06] VITALS (9 sets, daily range): BP systolic 126–145; BP diastolic 61–76; PULSE 49–68; RESP 14–18; TEMP 36.6–36.8; O2SAT 90–97
--- NOTE | 2021-04-06 | SCC_ITS ---
Procedure Done: Placement of PowerPort in the left subclavian vein 39.4 seconds of fluoroscopic guidance, for a cumulative dose of 5.42 mGy, was provided to Dr. Winchester by the radiology department. C-arm images of the chest were saved for the patient's permanent record. [facility]
[2021-04-06] MEDS: sodium chloride 0.9% 1,000 ML 30 ML IV (12:28)
[2021-04-06 12:31] LABS: Glucose Point of Care 92 mg/dL (70-110)
--- NOTE | 2021-04-06 12:36 | W.PM.OPSUD ---
Surgery/Procedure H&P Update DATE OF PROCEDURE: April 06, 2021 DATE H&P PERFORMED: 04/01/21 H&P UPDATE INFORMATION: I have reviewed H&P completed within last 30 days, I have examined patient prior to procedure and No changes to prior documentation PREOP DIAGNOSIS: Mandibular cancer PLANNED PROCEDURE: Operation Date: 04/06/21 13:30 Proposed Procedures p Portacath Placement [id number] z85.819 k94.23(Not Applicable) - Geovanny Winchester MD s Gastric Tube Exchange(Not Applicable) - Geovanny Winchester MD
--- NOTE | 2021-04-06 13:50 | ANES.PREANE2 ---
Pre-Anesthetic Assessment Pre-Anesthetic Assessment: Height/Weight: Height 1.83 m Weight 92.079 kg Temp Pulse Resp BP Pulse Ox 97.8 F 49 L 18 143/71 97 04/06/21 12:09 04/06/21 12:09 04/06/21 12:09 04/06/21 12:09 04/06/21 12:09 Preop Diagnosis: Mandibular cancer Proposed Procedure: Operation Date: 04/06/21 13:30 Proposed Procedures p Portacath Placement [id number] z85.819 k94.23(Not Applicable) - Geovanny Winchester MD s Gastric Tube Exchange(Not Applicable) - Geovanny Winchester MD Was Beta Thad taken within 24 hours: Yes Was Clonidine taken within 24 hours: N/A Social: Social History: No alcohol and No tobacco Exam: Pre-Anes Outpt Exam: alert, oriented x 3, clear to auscultation bilaterally and regular rate & rhythm Airway: Submandibular: WNL Cervical ROM: WNL MP: 4 Additional comments: H/o head and neck radiation, neck flap and mandible reconstruction, pratt Pulmonary: Pulmonary: COPD CV/HEM: CV/HEM: HTN GI: GI: GERD Metabolic: Metabolic: DM, Hyperlipidemia and Morbid obesity Anesthetic Plan: ASA status: 3 Anesthesia: MAC Risk of > 500 ml blood loss (7ml/kg in children): No Meds/Allergies Current Medications: Current Medications Generic Name Dose Route Start Last Admin Trade Name Freq PRN Reason Stop Dose Admin Sodium Chloride 1,000 mls @ 30 ml s/hr 04/06/21 12:00 04/06/21 12:28 Sodium Chloride 0.9% IV 04/07/21 11:59 30 mls/hr .Q24H EDEN Administration PFSH Anesthesia PFSH: Medical History (Updated 04/02/21 @ 12:59 by Geovanny Winchester MD) Cancer of mandible CVA (cerebral vascular accident) History of oral cancer Hypertension Type 2 diabetes mellitus 2010 Surgical History (Updated 04/01/21 @ 09:56 by Geovanny Winchester MD) History of cholecystectomy lap-2012 History of colonoscopy History of mandibular surgery Social History Smoking and tobacco status: never smoked Quit status (tobacco): has quit using tobacco Data Anesthesia Other Labs: Laboratory Results - last 48 hr 04/06/21 12:25 POC Glucose 92 Cardiac Studies: No Data to Display
--- NOTE | 2021-04-06 14:29 | SC_ITS ---
WS: [id number] Left port insertion, 04/06/2021 Clinical Data: portacath placement Comparison: PA and lateral chest, 09/27/2020. Findings: The left Port-A-Cath enters the left subclavian vein and ends in the superior vena cava. SC/C-arm FL for CVA [id number] Impression: Left Port-A-Cath insertion.
[2021-04-06] MEDS: lidocaine 1% INJ 20 mL 5 ML INTRAVESIC (14:38)
[2021-04-06] MEDS: heparin, porcine 1,000 unit/mL INJ 10 mL 6000 UNIT HE (14:40)
--- NOTE | 2021-04-06 15:06 | P.OP_ITS ---
Operative Report Date of procedure: April 06, 2021 Pre-op Diagnosis: 1. Mandibular cancer Pre-op Diagnosis: 2. Nonfunctioning PEG tube Post-op Diagnosis: 1. Mandibular cancer 2. Nonfunctioning PEG tube Procedure Done: Placement of PowerPort in the left subclavian vein Fluoroscopic guidance and interpretation for placement of catheter Exchange of 20 [place]amanian gastrostomy tube Pathology: none sent Surgeon: Geovanny Winchester Anesthesia: MAC Condition: stable Disposition: PACU Procedure: The patient was taken to the Operating Room and the chest and neck bilaterally were prepped and draped in a sterile manner after the antibiotic had been administered and shoulder rolls had been placed. A total of 10 mL of 1% lidocaine with 0.5% Marcaine was infiltrated under the clavicle on the left side at the site of the planned entry into the subclavian vein. An introducer needle was then used to access the subclavian vein under the clavicle and after withdrawing blood syringe was removed and a guidewire passed under fluoroscopy into the superior vena cava. The site of the planned port was then marked on the chest and a 15 blade was used to make a 3 cm skin incision this was extended into the subcutaneous tissue using electrocautery and a subcutaneous pocket over the pectoralis fascia was created 2-0 Vicryl suture was used to suture the port to the pectoral fascia in the pocket on 3 sides. The catheter, after having been flushed with hep saline, was attached to the tunneler and a tunnel created between the port site and the subclavian vein entry site. Under fluoroscopy the dilator sheath was passed over the guidewire into the proximal superior vena cava. The inner dilator was removed and the sheath left behind and~ the catheter was introduced through the peel-away sheath with the tip in the superior vena cava. The peel-away sheath was removed. The proximal end of the catheter was cut to the right size and was attached to the port. Using a Tipton needle the port was accessed, it withdrew blood easily and flushed easily. A final 5cc of heparin was used to flush the PowerPort. The subcutaneous tissue was approximated using interrupted 3-0 Vicryl sutures and the skin at the introducer site and the port site was closed using subcuticular running 4-0 Monocryl sutures. Surgical glue was applied and the patient was stable throughout the procedure. Fluoroscopic guidance and interpretation was performed for introduction of the guidewire in the left subclavian vein, passage of dilator and placement of catheter tip in the distal superior vena cava. The PEG tube was removed intact by applying gentle traction and 20 [place]ian gastrostomy tube was placed without difficulty. The balloon was inflated with 7 cc of saline. Sterile dressings applied.
[2021-04-06 15:23] LABS: Glucose Point of Care 89 mg/dL (70-110)
[2021-04-06] MEDS: fentaNYL 50 mcg/mL INJ 2mL IVP (15:43)
--- NOTE | 2021-04-06 15:58 | ANE.PACU2 ---
Inpatient post-anesthesia follow up: Airway intact: Yes Vital signs: Temperature 98.3 F Pulse Rate 54 Respiratory Rate 17 Blood Pressure 126/76 Pulse Oximetry 95 Oxygen Delivery Me thod Room Air Oxygen Flow Rate Fraction of Inspir ed Oxygen Hydration adequate: Yes Nausea and vomiting: No Pain level: 1 Mental status: Baseline
== END 2021-04-06 16:12 | disposition home or self-care (01) ==
PROVIDERS: PCP Family Medicine; Visit Provider Surgery
PROC: (CPT 36561; principal; 2021-04-06 13:20)
PROC: (CPT 43762; 2021-04-06 13:20)
DX: Z85.819 Personal history of malignant neoplasm of unspecified site of lip, oral cavity, and pharynx (principal); K94.23 Gastrostomy malfunction; J44.9 Chronic obstructive pulmonary disease, unspecified; I10 Essential (primary) hypertension; K21.9 Gastro-esophageal reflux disease without esophagitis; E11.9 Type 2 diabetes mellitus without complications; E78.5 Hyperlipidemia, unspecified; E66.01 Morbid (severe) obesity due to excess calories; Z87.891 Personal history of nicotine dependence
CPT/HCPCS: 36561; 43762; 36416; 77001; 82962; C1788; J0690; J1644; J2250; J2704; J3010; J3490; J7030

== ENCOUNTER 2021-04-07 13:34 | Outpatient (CLI) | payer MEDICARE, SELFPAY | END 2021-04-07 13:35 | disposition home or self-care (01) | LOC: WOUND 13:35 | PROVIDERS: PCP Family Medicine; Visit Provider Thoracic Surgery (Cardiothoracic Vascular Surgery) | DX: T81.89XA Other complications of procedures, not elsewhere classified, initial encounter (principal); Y83.8 Other surgical procedures as the cause of abnormal reaction of the patient, or of later complication, without mention of misadventure at the time of the procedure | CPT/HCPCS: 97597 ==

== ENCOUNTER 2021-04-28 13:40 | Outpatient (CLI) | payer MEDICARE, SELFPAY | END 2021-04-28 13:41 | disposition home or self-care (01) | LOC: WOUND 13:41 | PROVIDERS: PCP Family Medicine; Visit Provider Thoracic Surgery (Cardiothoracic Vascular Surgery) | DX: T81.89XA Other complications of procedures, not elsewhere classified, initial encounter (principal); Y83.8 Other surgical procedures as the cause of abnormal reaction of the patient, or of later complication, without mention of misadventure at the time of the procedure | CPT/HCPCS: 77336; 77386; 87070; 87075; 87077; 87186; 87205; 97597 ==

== ENCOUNTER 2021-05-04 05:56 | Outpatient (RCR) | payer MEDICARE, SELFPAY ==
--- NOTE | 2021-04-13 | CT_ITS ---
Radiation Therapy Planning CT images; total exam DLP: 968.62 mGy-cm MTDD
[2021-04-18] MEDS: sodium chloride 0.9% 250 ML 75 ML IV (09:09)
[2021-04-18 09:28] LABS: Basophils # 0.1 10^3/uL (0.0-0.1); Basophils % 1.2 %; Eosinophils # 0.7 10^3/uL (0.0-0.8); Eosinophils % 10.1 %; Hematocrit 38.6 % (42.0-52.0); Lymphocytes % 14.5 %; Mean Corpuscular HGB Conc 31.1 g/dL (30.0-36.0); Mean Corpuscular Hemoglobin 27.5 pg (28.0-34.0); Mean Corpuscular Volume 88.3 fL (80-94); Mean Platelet Volume 10.9 fL (7.4-10.4); Monocytes # 0.7 10^3/uL (0.2-0.9); Monocytes % 9.4 %; Neutrophils # 4.48 10^3/uL (1.8-7.7); Neutrophils % 64.7 %; Nucleated Red Blood Cells % 0 %; Platelet Count 303 10^3/cmm (130-400); Red Blood Count 4.37 10^6/uL (4.1-5.3); Red Cell Distribution Width 13.4 % (12.1-15.1); White Blood Count 6.9 10^3/uL (4.0-10.0)
[2021-04-18 09:49] LABS: Alanine Aminotransferase 33 U/L (0-41); Albumin Level 3.5 g/dL (3.5-5.2); Alkaline Phosphatase 83 IU/L (40-130); Anion Gap 12.6 (5-19); Aspartate Amino Transferase 24 U/L (0-40); Blood Urea Nitrogen 41 mg/dL (8-23); Calcium 8.9 mg/dL (8.5-10.5); Carbon Dioxide 28 mmol/L (22-29); Chloride 96 mmol/L (98-107); Globulin 3.3 g/dL (1.3-4.6); Glomerular Filtration Rate 96.4 mL/min (90-130); Glucose 128 mg/dL (65-115); Osmolality Calculated 286 mOsm/kg (285-295); Potassium 4.6 mmol/L (3.5-5.1); Sodium 132 mmol/L (136-145); Total Bilirubin 0.6 mg/dL (0.15-1.2); Total Protein 6.8 g/dL (6.6-8.7)
[2021-04-18] MEDS: sodium chloride 0.9% (100 ml) 100 ML 75 ML ×2 (11:00→11:35)
[2021-04-18] MEDS: palonosetron 0.25 mg/5 mL SDV IV (11:35)
[2021-04-18] MEDS: fosaprepitant 150 MG in sodium chloride 0.9% 150 ML 300 MG IV (11:55)
[2021-04-18] MEDS: FUROsemide 10 mg/mL SDV 2mL 20 MG IV (13:40)
[2021-04-18] MEDS: potassium chloride 20 MEQ in sodium chloride 0.9% 500 ML 250 MEQ IV (13:43)
--- NOTE | 2021-04-19 14:04 | ONCRAD TMN_ITS ---
Radiation Oncology Treatment Management Note Patient Name: Carl Gill Date of : 1955 Date of Service: 04/19/2021 Attending Physician: Reji Payne M.D. 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 A wide local excision with hemimandibulectomy, unilateral neck dissection, and reconstruction with an osteocutaneous radial free flap replacement was performed on 11/01/2020. Pathology confirmed the diagnosis of a 6.2 cm moderately differentiated squamous cell carcinoma with a tumor depth of invasion of 4.1 cm and the presence of lymphovascular/perineural invasion. A total of 32 lymph nodes were harvested with two level I lymph nodes harboring metastatic disease (largest metastatic deposit was 1.5 cm of with one lymph node demonstrating extranodal extension). Surgical margins were positive (bone and soft tissue). The patient has received 4 Gy of a prescribed 66 [place] with an intensity modulated radiotherapy plan utilizing a step and shoot treatment technique. He has been prescribed cisplatin (30 mg/m2) weekly during radiotherapy. Upon review of systems, he denied any complaints related to radiotherapy. On physical examination, the patient weighed 242 lbs. His temperature was 98.4 ???F with a blood pressure of 130/60 mmHg. His pulse was 53 bpm and the respiratory rate was 18. There was no erythema within the treatment valera. Continue post-operative head and neck radiotherapy as prescribed. Signed by: Dr. Reji Payne 04/19/2021 2:02:47 PM
[2021-04-25 08:34] LABS: Basophils % 0.6 %; Eosinophils # 0.6 10^3/uL (0.0-0.8); Eosinophils % 9.1 %; Hematocrit 37.8 % (42.0-52.0); Hemoglobin 11.5 g/dL (11.7-16.6); Lymphocytes # 0.7 10^3/uL (0.8-4.8); Lymphocytes % 10.4 %; Mean Corpuscular HGB Conc 30.4 g/dL (30.0-36.0); Mean Corpuscular Hemoglobin 27.4 pg (28.0-34.0); Mean Corpuscular Volume 90.2 fL (80-94); Mean Platelet Volume 10.9 fL (7.4-10.4); Monocytes # 0.7 10^3/uL (0.2-0.9); Monocytes % 10.6 %; Neutrophils # 4.78 10^3/uL (1.8-7.7); Neutrophils % 68.7 %; Nucleated Red Blood Cells % 0 %; Platelet Count 268 10^3/cmm (130-400); Red Blood Count 4.19 10^6/uL (4.1-5.3)
[2021-04-25] MEDS: sodium chloride 0.9% 250 ML 75 ML IV (08:35)
[2021-04-25 09:15] LABS: Alanine Aminotransferase 24 U/L (0-41); Albumin Level 3.3 g/dL (3.5-5.2); Alkaline Phosphatase 87 IU/L (40-130); Anion Gap 14.8 (5-19); Aspartate Amino Transferase 17 U/L (0-40); Blood Urea Nitrogen 31 mg/dL (8-23); Calcium 8.6 mg/dL (8.5-10.5); Carbon Dioxide 27 mmol/L (22-29); Chloride 96 mmol/L (98-107); Globulin 3.1 g/dL (1.3-4.6); Glomerular Filtration Rate 96.4 mL/min (90-130); Glucose 152 mg/dL (65-115); Osmolality Calculated 286 mOsm/kg (285-295); Potassium 4.8 mmol/L (3.5-5.1); Sodium 133 mmol/L (136-145); Total Bilirubin 0.7 mg/dL (0.15-1.2); Total Protein 6.4 g/dL (6.6-8.7)
[2021-04-25] MEDS: palonosetron 0.25 mg/5 mL SDV IVP (11:54)
[2021-04-25] MEDS: FUROsemide 10 mg/mL SDV 2mL 20 MG IV (13:34)
[2021-04-25] MEDS: potassium chloride 20 MEQ in sodium chloride 0.9% 500 ML 250 MEQ IV (13:37)
--- NOTE | 2021-04-25 18:18 | ONC FU_ITS ---
Dr. Barraza follow up note Patient: Carl Gill Unit #: [id number]: 1955 Dicatated By: Eduardo Barraza M.D.Date of Visit:Apr 25, 2021 Onc Med Follow-up/Prog Note History of Present Illness: Mr. Carl Gill, is a 65-year-old gentleman with a history of right oral cavity pain and swelling since June or July 2020, as per patient he was prescribed antibiotics on multiple occasion without any improvement rather pain and swelling in his right oral cavity continue to progress eventually he was referred to ENT for evaluation CT scan of the head and neck done on September 30, 2020 showed soft tissue lesion adjacent to the right mandible causing destruction of the right mandible and an associated pathological fracture and there was no obvious lymphadenopathy in the neck, and on November 01, 2020 he underwent right hemimandibulectomy with right modified radical neck dissection of levels 1 through 5 along with placement of tracheostomy and with right forearm free flap and right pectoralis major flap for reconstruction. 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 1 of 4 level 1A lymph node was involved with malignancy without extranodal extension. 3 additional right neck level 2 lymph nodes were none involved and 15 additional right level 2A lymph nodes that were not involved. To right level 3 lymph nodes were negative and 6 right level 4 lymph node were negative. Primary site was 6.2 cm in size invasive squamous cell carcinoma, moderately differentiated, invading through cortical bone with positive soft tissue margins and bone margins. There was perineural invasion as well as lymphovascular space invasion. There was a lymph node removed with the tumor itself was 1.5 cm in size with extranodal extension present. Overall stage was T4A, N3B, M0 Patient also had episode of stroke just before involving his thalamus, now has recovered and on aspirin and Plavix. Past medical history significant for hypertension, hyperlipidemia, obesity, type 2 diabetes Patient denies smoking but he used to chew tobacco up to diagnosis Denies any mouth sores, denies any dysphagia, denies any chest pain denies any shortness of breath denies any jaundice denies any new bony pains denies any hemoptysis or hematemesis. Started on combined chemoradiation with weekly cisplatin on 04/18/2021 Came for follow-up, denies any specific complaint except pain/discomfort in the right side of upper neck or face, Percocet every 6 hours is not sufficient otherwise denies any swelling in the right face denies any fever or chills denies any sinus problem denies any sore throat denies any blurred vision or double vision, denies any headaches, denies any right ear discharge or pain, tolerating combined chemoradiation with weekly cisplatin well otherwise Medications: amLODIPine Besylate 1 Tablet (of 5 mg) Oral daily, Aspirin 81 1 Tablet (of 81 mg) Tablet, chewable Oral every am, Atorvastatin Calcium 1 Tablet (of 40 mg) Oral daily, B-12 1 Caplet (of 1000 mcg) Capsule Oral every am, Cholecalciferol 1 Tablet (of 125 mcg ) Oral daily, Clopidogrel Bisulfate 1 Tablet (of 75 mg) Oral daily, Escitalopram Oxalate 1 Tablet (of 10 mg) Oral every am, Glucerna 1.5 Luis Manuel 400 mL Liquid Oral t.i.d. & at bedtime, Lisinopril 1 Tablet (of 5 mg) Oral every am, Melatonin 2 Caplet (of 3 mg) Capsule Oral daily, Metoprolol Tartrate 1 Tablet (of 50 mg) Oral b.i.d., Omeprazole 20 mL (of 2 mg/mL) Suspension Oral every am, oxyCODONE-Acetaminophen 2 Tablet (of 10-325 mg) Oral q 6 hours PRN, Polyethylene Glycol 1 Scoop(s) Powder PRN, QUEtiapine Fumarate 0.5 Tablet (of 25 mg) Oral b.i.d., Senna Plus 2 Caplet (of 50-8.6 mg) Capsule Oral daily Allergies: No Known Allergies. Review of Systems: Review of Systems is not available for this patient. Vital Signs: Performed on Apr 25, 2021 09:32 Height - 72.00 in Weight - 246.2 lbs (HIGH) BSA - 2.33 sq.m BMI - 33.39 (HIGH) Temperature - 97.3 F (LOW) Pulse - 51 /min (LOW) Respiration - 18 /min BP - 150/67 mm(hg) (HIGH) O2 Sat - 94 % (LOW) Pain - 0 Performance Status: 1 - No physically strenuous activity, but ambulatory and able to carry out light or sedentary work (e.g. office work, light house work). (ECOG) Physical Examination: ENMT - No mouth sores, no thrush, postsurgical changes in the neck, no swelling or puffiness seen in the right upper neck, nontender, Respiratory - Lungs are clear to auscultation, Cardiovascular - Regular rate and rhythm of heart, Abdomen - Soft, bowel sounds present, Extremities - No visible edema. Lab/Imaging: Test performed on Apr 18, 2021 09:04 Sodium 132 mmol/L Potassium 4.6 mmol/L Chloride 96 mmol/L CO2 28 mmol/L Anion Gap 12.6 BUN 41 mg/dL Creatinine 0.8 mg/dL Cr Clearance (Est) 120.1500 mL/min eGFR 96.4 mL/min Glucose 128 mg/dL Osmolality - Calculated 286 mOsm/kg Calcium 8.9 mg/dL Protein, Total 6.8 g/dL Albumin 3.5 g/dL Globulin 3.3 g/dL Bilirubin, Total 0.6 mg/dL ALT (SGPT) 33 U/L AST (SGOT) 24 U/L Alkaline Phosphatase 83 IU/L WBC 6.9 10 3/uL RBC 4.37 10 6/uL HGB 12.0 g/dL HCT 38.6 % MCV 88.3 fL MCH 27.5 pg MCHC 31.1 g/dL RDW 13.4 % Platelet Count 303 10 3/cmm MPV 10.9 fL Neutrophils 4.48 10 3/uL Lymphocytes 1.0 10 3/uL Monocytes 0.7 10 3/uL Eosinophils 0.7 10 3/uL Basophils 0.1 10 3/uL Neutrophil % 64.7 % Lymphocyte % 14.5 % Monocyte % 9.4 % Eosinophil % 10.1 % Basophils % 1.2 % NRBC % 0 % Impression: Invasive squamous cell carcinoma, moderately differentiated status post right hemimandibulectomy with right modified radical neck dissection of levels 1 through 5 along with placement of the tracheostomy and a right forearm free flap and right pectoralis major flap for reconstruction. Done on November 01, 2020 in [facility] final pathology report showed 6.2 cm size invasive squamous cell carcinoma moderately differentiated p16 negative, invading through the cortical bone with a positive margin and positive soft tissue margin there was perineural invasion as well as lymphovascular space invasion. There was a lymph node removed with the tumor itself size about 1.5 cm with extranodal extension present. 1 of 4 level 1 lymph node was involved with malignancy without extranodal extension. 3 additional right neck level 2 lymph nodes were noninvolved and 15 additional right level 2 lymph node were not involved. To right level 3 nodes were negative and 6 right level 4 lymph nodes were negative. stage p T4a, N3B, M0 IVb Started on combined chemoradiation with weekly cisplatin on 04/18/2021 History of confusion and stroke on [email or web address], diagnosed with thalamic stroke Follow-up CT scan of head done on December 02, 2020 showed no evidence of acute intracranial abnormality. Stable appearance of multiple scattered old lacunar infarcts. History of tobacco chew Type 2 diabetes Hypertension Plan: Discussed with patient regarding his labs white blood count 7 hemoglobin 11.5 marker 37.8 platelets 268,000 CMP within normal limits Clinically, patient doing well with no new signs symptom, tolerating combined chemoradiation with weekly cisplatin well, will proceed with the next weekly dose of cisplatin today return to clinic in 1 week with CBC CMP, as well as right upper neck/facial pain is concerned etiology is unclear, now being treated with Percocet every every 6 hours, patient was advised to try every 4 hours if there is no improvement, will request ENT for evaluation. Signed By: Eduardo Barraza M.D. <<Signature on File>>
--- NOTE | 2021-04-26 14:24 | ONCRAD TMN_ITS ---
Radiation Oncology Weekly Treatment Management Patient: Bridget Antoine MR#: [id number] : 1955> Attending Physician: Dr. Pb Phillips Date of Service: 04/26/2021 Referring Physician(s) : Eduardo Barraza M.D. Diagnosis: C41.1 - Malignant neoplasm of mandible, Diagnosed 12/22/2020 (Active) Radiotherapy to date: Course: Oral Cavity 2020, Treatment Site: Oral Cavity, Ref. ID: [id number], Energy: 6X, Dose/Fx (cGy): 200, #Fx: , Dose Correction (cGy): 0, Total Dose (cGy): 1,400, Start Date: 04/18/2021, Elapsed Days: 8 Reason for visit: The patient is being seen today as part of their regularly scheduled weekly on treatment visits to assess for acute toxicities from radiotherapy. Review of Systems: Mr. Zuleta is stable at this time. He has noticed slight mouth dryness. He has also noted some right ear pain. His weight is stable. His primary nutrition comes through his PEG tube. He can take liquids, ice cream and yogurt per mouth. He has no complaints regarding the surgical wound in the oral cavity and neck. He has no complaints regarding the 2 donor sites. Vital Signs: Performed on 04/26/2021 1:52 PM BMI - 33.771 kg/m2 (high), Height - 72.00 in, Weight - 249.0 lbs, Temperature - 98.5 f, Pulse - 58, Respiration - 20, O2 Sat - 95 % (low), Pain - 0 and BP - 125/ 80 mm(hg). Physical Exam: He has stable swelling in the right upper anterior neck and in the area of the oral cavity graft. There is no evidence of infection. The neck is soft to palpation and no lymphadenopathy was detected. No yeast or ulcerations noted in the oral cavity. The donor site on the chest looks excellent. The donor site on the arm is wrapped in a bandage but the patient said that it is almost healed. Imaging: Radiation therapy imaging related to accurate target localization (i.e. KV, MV and CBCT) was reviewed. Appropriate changes, if any, were made to ensure treatment accuracy. Plan: Continue radiation as planned. He will continue Miralax for constipation. He had no questions. Signed by: Dr. Pb Phillips 04/26/2021 2:22:46 PM
[2021-05-02 14:07] LABS: Basophils # 0.1 10^3/uL (0.0-0.1); Basophils % 0.7 %; Eosinophils # 0.4 10^3/uL (0.0-0.8); Eosinophils % 5.3 %; Hematocrit 35.9 % (42.0-52.0); Lymphocytes # 0.5 10^3/uL (0.8-4.8); Mean Corpuscular HGB Conc 30.6 g/dL (30.0-36.0); Mean Corpuscular Hemoglobin 27.4 pg (28.0-34.0); Mean Corpuscular Volume 89.5 fL (80-94); Mean Platelet Volume 11.1 fL (7.4-10.4); Monocytes # 0.7 10^3/uL (0.2-0.9); Monocytes % 10.4 %; Neutrophils # 5.08 10^3/uL (1.8-7.7); Neutrophils % 75.5 %; Nucleated Red Blood Cells % 0 %; Platelet Count 248 10^3/cmm (130-400); Red Blood Count 4.01 10^6/uL (4.1-5.3); Red Cell Distribution Width 14.5 % (12.1-15.1); White Blood Count 6.7 10^3/uL (4.0-10.0)
[2021-05-02 14:25] LABS: Alanine Aminotransferase 18 U/L (0-41); Albumin Level 3.4 g/dL (3.5-5.2); Alkaline Phosphatase 80 IU/L (40-130); Anion Gap 13.6 (5-19); Aspartate Amino Transferase 13 U/L (0-40); Blood Urea Nitrogen 24 mg/dL (8-23); Calcium 8.5 mg/dL (8.5-10.5); Carbon Dioxide 26 mmol/L (22-29); Chloride 97 mmol/L (98-107); Glomerular Filtration Rate 112.5 mL/min (90-130); Glucose 128 mg/dL (65-115); Osmolality Calculated 280 mOsm/kg (285-295); Potassium 4.6 mmol/L (3.5-5.1); Sodium 132 mmol/L (136-145); Total Bilirubin 0.4 mg/dL (0.15-1.2); Total Protein 6.4 g/dL (6.6-8.7)
[2021-05-03] MEDS: sodium chloride 0.9% 250 ML 75 ML IV (10:25)
[2021-05-03] MEDS: palonosetron 0.25 mg/5 mL SDV IVP (12:54)
[2021-05-03] MEDS: FUROsemide 10 mg/mL SDV 2mL 20 MG IV (14:37)
[2021-05-03] MEDS: potassium chloride 20 MEQ in sodium chloride 0.9% 500 ML 500 MEQ IV (14:39)
--- NOTE | 2021-05-03 16:35 | ONCRAD TMN_ITS ---
Radiation Oncology Weekly Treatment Management Patient: Elina Gill MR#: [id number] : 1955> Attending Physician: Dr. Pb Phillips Date of Service: 05/03/2021 Referring Physician(s) : Eduardo Barraza Diagnosis: C41.1 - Malignant neoplasm of mandible, Diagnosed 12/22/2020 (Active) Radiotherapy to date: Course: Oral Cavity 2020, Treatment Site: Oral Cavity, Ref. ID: [id number], Energy: 6X, Dose/Fx (cGy): 200, #Fx: , Dose Correction (cGy): 0, Total Dose (cGy): 2,400, Start Date: 04/18/2021, Elapsed Days: 15 Reason for visit: The patient is being seen today as part of their regularly scheduled weekly on treatment visits to assess for acute toxicities from radiotherapy. Review of Systems: Mr. Zuleta had chemotherapy today. He was seen in the chemotherapy suite. He did receive his 12th radiation treatment prior to my seeing him. He has noted worsening dry mouth and has soreness in the oral cavity. He is continuing to get most nutrition through the PEG tube, though he can take fluids and some soft foods by mouth. His fatigue level is moderate. His weight is stable. He has not been using the salt and soda rinses. Vital Signs: Performed on 05/03/2021 9:09 AM Height - 72.00 in, Weight - 244 lbs (low), BSA - 2.32 sq.m, BMI - 33.09 (high), Temperature - 99 f (high), Pulse - 57 /min (low), Respiration - 18 /min, O2 Sat - 95 % (low), Pain - 2, BP - 145/ 64 mm(hg)(high/low), Performed on 05/03/2021 3:27 PM BMI - 33.852 kg/m2 (high), Height - 72.00 in, Weight - 249.6 lbs, Temperature - 96.9 f, Pulse - 51, Respiration - 18, O2 Sat - 96 %, Pain - 0 and BP - 153/ 75 mm(hg)(high/). Physical Exam: The skin graft in the lower facial area appears stable. There is no skin breakdown. There is no significant erythema. He has some difficulty opening his mouth. The graft and the portions of the oral cavity that can be seen do not appear significantly inflamed. I did not see any evidence of yeast or viral ulcerations. No lymph nodes palpated. Imaging: Radiation therapy imaging related to accurate target localization (i.e. KV, MV and CBCT) was reviewed. Appropriate changes, if any, were made to ensure treatment accuracy. Plan: Continue treatment as planned. I strongly encouraged Mr. Gill to use the salt and soda rinses. I explained the multiple benefits. No questions. Signed by: Dr. Pb Phillips 05/03/2021 4:33:36 PM
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
== END 2021-05-07 23:59 | disposition home or self-care (01) ==
LOC: ONCMED 05:56
PROVIDERS: Absent Provider Specialist; PCP Family Medicine; Visit Provider Internal Medicine Hematology & Oncology
DX: Z51.0 Encounter for antineoplastic radiation therapy (principal); Z51.11 Encounter for antineoplastic chemotherapy; C41.1 Malignant neoplasm of mandible; E11.9 Type 2 diabetes mellitus without complications; I10 Essential (primary) hypertension; Z87.891 Personal history of nicotine dependence; Z86.73 Personal history of transient ischemic attack (TIA), and cerebral infarction without residual deficits; Z79.899 Other long term (current) drug therapy
CPT/HCPCS: 36591; 77300; 77301; 77334; 77336; 77338; 77386; 77470; 80053; 85025; 96366; 96367; 96375; 96413; 99215; J1100; J1453; J1940; J2469; J3475; J3480; J7030; J7040; J7050; J9060; Q9967

== ENCOUNTER 2021-05-12 13:45 | Outpatient (CLI) | payer MEDICARE, SELFPAY | END 2021-05-12 13:46 | disposition home or self-care (01) | LOC: WOUND 13:46 | PROVIDERS: PCP Family Medicine; Visit Provider Thoracic Surgery (Cardiothoracic Vascular Surgery) | DX: E11.622 Type 2 diabetes mellitus with other skin ulcer (principal); L98.492 Non-pressure chronic ulcer of skin of other sites with fat layer exposed | CPT/HCPCS: 11042 ==

== ENCOUNTER 2021-05-26 13:39 | Outpatient (CLI) | payer MEDICARE, SELFPAY | END 2021-05-26 13:40 | disposition home or self-care (01) | LOC: WOUND 13:40 | PROVIDERS: PCP Family Medicine; Visit Provider Thoracic Surgery (Cardiothoracic Vascular Surgery) | DX: I96 Gangrene, not elsewhere classified (principal); T81.89XD Other complications of procedures, not elsewhere classified, subsequent encounter; Y83.8 Other surgical procedures as the cause of abnormal reaction of the patient, or of later complication, without mention of misadventure at the time of the procedure | CPT/HCPCS: 11043 ==

== ENCOUNTER 2021-06-03 05:40 | Outpatient (RCR) | payer MEDICARE, SELFPAY ==
[2021-05-10 14:03] LABS: Basophils % 0.8 %; Eosinophils # 0.2 10^3/uL (0.0-0.8); Eosinophils % 3.6 %; Hematocrit 36.8 % (42.0-52.0); Hemoglobin 11.1 g/dL (11.7-16.6); Lymphocytes # 0.4 10^3/uL (0.8-4.8); Lymphocytes % 8.4 %; Mean Corpuscular HGB Conc 30.2 g/dL (30.0-36.0); Mean Corpuscular Hemoglobin 27.2 pg (28.0-34.0); Mean Corpuscular Volume 90.2 fL (80-94); Mean Platelet Volume 10.6 fL (7.4-10.4); Monocytes # 0.7 10^3/uL (0.2-0.9); Monocytes % 12.6 %; Neutrophils % 74.4 %; Nucleated Red Blood Cells % 0 %; Platelet Count 218 10^3/cmm (130-400); Red Blood Count 4.08 10^6/uL (4.1-5.3); Red Cell Distribution Width 14.9 % (12.1-15.1); White Blood Count 5.2 10^3/uL (4.0-10.0)
[2021-05-10 14:23] LABS: Alanine Aminotransferase 12 U/L (0-41); Albumin Level 3.5 g/dL (3.5-5.2); Alkaline Phosphatase 78 IU/L (40-130); Anion Gap 13.7 (5-19); Aspartate Amino Transferase 12 U/L (0-40); Blood Urea Nitrogen 21 mg/dL (8-23); Calcium 8.6 mg/dL (8.5-10.5); Carbon Dioxide 27 mmol/L (22-29); Chloride 99 mmol/L (98-107); Glomerular Filtration Rate 112.5 mL/min (90-130); Glucose 151 mg/dL (65-115); Osmolality Calculated 286 mOsm/kg (285-295); Potassium 4.7 mmol/L (3.5-5.1); Sodium 135 mmol/L (136-145); Total Bilirubin 0.4 mg/dL (0.15-1.2); Total Protein 6.5 g/dL (6.6-8.7)
--- NOTE | 2021-05-10 14:43 | ONCRAD TMN_ITS ---
Radiation Oncology Treatment Management Note Patient Name: Carl Gill Date of : 1955 Date of Service: 05/10/2021 Attending Physician: Reji Payne M.D. 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 A wide local excision with hemimandibulectomy, unilateral neck dissection, and reconstruction with an osteocutaneous radial free flap replacement was performed on 11/01/2020. Pathology confirmed the diagnosis of a 6.2 cm moderately differentiated squamous cell carcinoma with a tumor depth of invasion of 4.1 cm and the presence of lymphovascular/perineural invasion. A total of 32 lymph nodes were harvested with two level I lymph nodes harboring metastatic disease (largest metastatic deposit was 1.5 cm of with one lymph node demonstrating extranodal extension). Surgical margins were positive (bone and soft tissue). The patient has received 30 Gy of a prescribed 66 [place] with an intensity modulated radiotherapy plan utilizing a step and shoot treatment technique. He has been prescribed cisplatin (30 mg/m2) weekly during radiotherapy. Upon review of systems, he described pain in his left cheek. On physical examination, the patient weighed 240 lbs. His temperature was 98.3 ???F with a blood pressure of 156/61 mmHg. His pulse was 55 bpm and the respiratory rate was 20. There was no erythema within the treatment valera. Continue post-operative head and neck radiotherapy as planned. I will prescribe oxycodone elixir (5 mg/5 mL) for his pain. I also will request a dietary consult. Signed by: Dr. Reji Payne 05/10/2021 2:43:10 PM
[2021-05-10 15:28] LABS: Slide Review Slide Review Perform
[2021-05-11] MEDS: sodium chloride 0.9% 250 ML 75 ML IV (10:11)
[2021-05-11] MEDS: palonosetron 0.25 mg/5 mL SDV IV (12:04)
[2021-05-11] MEDS: fosaprepitant 150 MG in sodium chloride 0.9% 150 ML 300 MG IV (12:26)
[2021-05-11] MEDS: potassium chloride 20 MEQ in sodium chloride 0.9% 500 ML 250 MEQ IV (14:15)
[2021-05-11] MEDS: FUROsemide 10 mg/mL SDV 2mL 20 MG IV (14:15)
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
[2021-05-17 13:52] LABS: Basophils % 0.8 %; Eosinophils # 0.2 10^3/uL (0.0-0.8); Eosinophils % 3.8 %; Hematocrit 35.1 % (42.0-52.0); Lymphocytes # 0.4 10^3/uL (0.8-4.8); Mean Corpuscular HGB Conc 31.3 g/dL (30.0-36.0); Mean Corpuscular Hemoglobin 27.9 pg (28.0-34.0); Mean Corpuscular Volume 89.1 fL (80-94); Mean Platelet Volume 10.4 fL (7.4-10.4); Monocytes # 0.6 10^3/uL (0.2-0.9); Monocytes % 11.7 %; Neutrophils # 3.57 10^3/uL (1.8-7.7); Neutrophils % 74.5 %; Nucleated Red Blood Cells % 0 %; Platelet Count 200 10^3/cmm (130-400); Red Blood Count 3.94 10^6/uL (4.1-5.3); Red Cell Distribution Width 15.5 % (12.1-15.1); White Blood Count 4.8 10^3/uL (4.0-10.0)
[2021-05-17 14:10] LABS: Alanine Aminotransferase 9 U/L (0-41); Albumin Level 3.5 g/dL (3.5-5.2); Alkaline Phosphatase 76 IU/L (40-130); Anion Gap 12.5 (5-19); Aspartate Amino Transferase 11 U/L (0-40); Blood Urea Nitrogen 20 mg/dL (8-23); Calcium 8.7 mg/dL (8.5-10.5); Carbon Dioxide 28 mmol/L (22-29); Chloride 95 mmol/L (98-107); Globulin 3.1 g/dL (1.3-4.6); Glomerular Filtration Rate 134.4 mL/min (90-130); Glucose 139 mg/dL (65-115); Osmolality Calculated 277 mOsm/kg (285-295); Potassium 4.5 mmol/L (3.5-5.1); Sodium 131 mmol/L (136-145); Total Bilirubin 0.4 mg/dL (0.15-1.2); Total Protein 6.6 g/dL (6.6-8.7)
--- NOTE | 2021-05-17 14:21 | ONCRAD TMN_ITS ---
Radiation Oncology Treatment Management Note Patient Name: Carl Gill Date of : 1955 Date of Service: 05/17/2021 Attending Physician: Reji Payne M.D. 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 A wide local excision with hemimandibulectomy, unilateral neck dissection, and reconstruction with an osteocutaneous radial free flap replacement was performed on 11/01/2020. Pathology confirmed the diagnosis of a 6.2 cm moderately differentiated squamous cell carcinoma with a tumor depth of invasion of 4.1 cm and the presence of lymphovascular/perineural invasion. A total of 32 lymph nodes were harvested with two level I lymph nodes harboring metastatic disease (largest metastatic deposit was 1.5 cm of with one lymph node demonstrating extranodal extension). Surgical margins were positive (bone and soft tissue). The patient has received 40 Gy of a prescribed 66 [place] with an intensity modulated radiotherapy plan utilizing a step and shoot treatment technique. He has been prescribed cisplatin (30 mg/m2) weekly during radiotherapy. Upon review of systems, he continues to report jaw pain. On physical examination, the patient weighed 236 lbs. His temperature was 98.5 ???F with a blood pressure of 160/72 mmHg. His pulse was 60 bpm and the respiratory rate was 18. There was no erythema within the treatment valera. Continue post-operative head and neck radiotherapy as prescribed. I will increase the oxycodone elixir to 10 mg. Signed by: Dr. Reji Payne 05/17/2021 2:19:48 PM
[2021-05-17 17:15] LABS: Bilirubin Urine Neg (Negative); Blood Urine Neg (Negative); Glucose Urine UA Norm (Normal); Ketones Urine Negative (Negative); Leukocyte Esterase Urine Negative (Negative); Nitrate Urine Negative (Negative); Protein Urine Neg (Negative); Sulfosalicylic Acid Urine Negative (Negative); Urine Appearance Clear (CLEAR); Urine Color Yellow (Yellow); Urobilinogen Urine 1 mg/dL (Negative); pH Urine 8 (5-7)
[2021-05-17 17:23] LABS: Add Urine Culture? No; WBC Urine RARE /hpf (0-5)
[2021-05-18] MEDS: sodium chloride 0.9% 250 ML 75 ML IV (11:25)
[2021-05-18] MEDS: palonosetron 0.25 mg/5 mL SDV IVP (14:20)
[2021-05-18] MEDS: FUROsemide 10 mg/mL SDV 2mL 20 MG IV (15:50)
[2021-05-18] MEDS: potassium chloride 20 MEQ in sodium chloride 0.9% 500 ML 250 MEQ IV (15:50)
--- NOTE | 2021-05-19 16:53 | ONC FU_ITS ---
Dr. Barraza follow up note Patient: Carl Gill Unit #: [id number]: 1955 Dicatated By: Eduardo Barraza M.D.Date of Visit:May 18, 2021 Onc Med Follow-up/Prog Note History of Present Illness: Mr. Carl Gill, is a 66-year-old gentleman with a history of right oral cavity pain and swelling since June or July 2020, as per patient he was prescribed antibiotics on multiple occasion without any improvement rather pain and swelling in his right oral cavity continue to progress eventually he was referred to ENT for evaluation CT scan of the head and neck done on September 30, 2020 showed soft tissue lesion adjacent to the right mandible causing destruction of the right mandible and an associated pathological fracture and there was no obvious lymphadenopathy in the neck, and on November 01, 2020 he underwent right hemimandibulectomy with right modified radical neck dissection of levels 1 through 5 along with placement of tracheostomy and with right forearm free flap and right pectoralis major flap for reconstruction. 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 1 of 4 level 1A lymph node was involved with malignancy without extranodal extension. 3 additional right neck level 2 lymph nodes were none involved and 15 additional right level 2A lymph nodes that were not involved. To right level 3 lymph nodes were negative and 6 right level 4 lymph node were negative. Primary site was 6.2 cm in size invasive squamous cell carcinoma, moderately differentiated, invading through cortical bone with positive soft tissue margins and bone margins. There was perineural invasion as well as lymphovascular space invasion. There was a lymph node removed with the tumor itself was 1.5 cm in size with extranodal extension present. Overall stage was T4A, N3B, M0 Patient also had episode of stroke just before [place] involving his thalamus, now has recovered and on aspirin and Plavix. Past medical history significant for hypertension, hyperlipidemia, obesity, type 2 diabetes Patient denies smoking but he used to chew tobacco up to diagnosis Denies any mouth sores, denies any dysphagia, denies any chest pain denies any shortness of breath denies any jaundice denies any new bony pains denies any hemoptysis or hematemesis. Started on combined chemoradiation with weekly cisplatin on 04/18/2021 Came for follow-up, denies any specific complaint except sleepy, fatigue, sometimes confusion but no fever chills, no nausea or vomiting, no diarrhea constipation, no jaundice, no dysphagia, right throat pain is under control with current pain medication, tolerating combined chemoradiation with weekly cisplatin well otherwise Medications: amLODIPine Besylate 1 Tablet (of 5 mg) Oral daily, Aspirin 81 1 Tablet (of 81 mg) Tablet, chewable Oral every am, Atorvastatin Calcium 1 Tablet (of 40 mg) Oral daily, B-12 1 Caplet (of 1000 mcg) Capsule Oral every am, Cholecalciferol 1 Tablet (of 125 mcg ) Oral daily, Clopidogrel Bisulfate 1 Tablet (of 75 mg) Oral daily, Doxycycline Hyclate (100 mg) Capsule Oral b.i.d., Escitalopram Oxalate 1 Tablet (of 10 mg) Oral every am, Glucerna 1.5 Luis Manuel 400 mL Liquid Oral t.i.d. & at bedtime, Lisinopril 1 Tablet (of 5 mg) Oral every am, Melatonin 2 Caplet (of 3 mg) Capsule Oral daily, Metoprolol Tartrate 1 Tablet (of 50 mg) Oral b.i.d., Omeprazole 20 mL (of 2 mg/mL) Suspension Oral, oxyCODONE-Acetaminophen 2 Tablet (of 10-325 mg) Tablet Oral q 4 to 6 hours PRN, Polyethylene Glycol 1 Scoop(s) Powder PRN, QUEtiapine Fumarate 0.5 Tablet (of 25 mg) Oral b.i.d., Senna Plus 2 Caplet (of 50-8.6 mg) Capsule Oral daily Allergies: No Known Allergies. Review of Systems: Review of Systems is not available for this patient. Vital Signs: Performed on May 18, 2021 10:15 Height - 72.00 in Weight - 233.8 lbs (LOW) BSA - 2.28 sq.m BMI - 31.71 (HIGH) Temperature - 98 F (LOW) Pulse - 58 /min (LOW) Respiration - 18 /min BP - 145/73 mm(hg) (HIGH) O2 Sat - 97 % Pain - 5 Fatigue - 5 Performance Status: 0 - Fully active, able to carry on all predisease activities without restrictions. (ECOG) Physical Examination: ENMT - Postoperative right neck changes, poor oral hygiene, mild erythema in the throat, Respiratory - Lungs are clear to auscultation, Cardiovascular - Regular rate and rhythm of heart, Abdomen - Soft, bowel sounds present, Extremities - No visible edema. Lab/Imaging: Test performed on Apr 18, 2021 09:04 Sodium 132 mmol/L Potassium 4.6 mmol/L Chloride 96 mmol/L CO2 28 mmol/L Anion Gap 12.6 BUN 41 mg/dL Creatinine 0.8 mg/dL Cr Clearance (Est) 120.1500 mL/min eGFR 96.4 mL/min Glucose 128 mg/dL Osmolality - Calculated 286 mOsm/kg Calcium 8.9 mg/dL Protein, Total 6.8 g/dL Albumin 3.5 g/dL Globulin 3.3 g/dL Bilirubin, Total 0.6 mg/dL ALT (SGPT) 33 U/L AST (SGOT) 24 U/L Alkaline Phosphatase 83 IU/L WBC 6.9 10 3/uL RBC 4.37 10 6/uL HGB 12.0 g/dL HCT 38.6 % MCV 88.3 fL MCH 27.5 pg MCHC 31.1 g/dL RDW 13.4 % Platelet Count 303 10 3/cmm MPV 10.9 fL Neutrophils 4.48 10 3/uL Lymphocytes 1.0 10 3/uL Monocytes 0.7 10 3/uL Eosinophils 0.7 10 3/uL Basophils 0.1 10 3/uL Neutrophil % 64.7 % Lymphocyte % 14.5 % Monocyte % 9.4 % Eosinophil % 10.1 % Basophils % 1.2 % NRBC % 0 % Impression: Invasive squamous cell carcinoma, moderately differentiated status post right hemimandibulectomy with right modified radical neck dissection of levels 1 through 5 along with placement of the tracheostomy and a right forearm free flap and right pectoralis major flap for reconstruction. Done on November 01, [address] [facility] final pathology report showed 6.2 cm size invasive squamous cell carcinoma moderately differentiated p16 negative, invading through the cortical bone with a positive margin and positive soft tissue margin there was perineural invasion as well as lymphovascular space invasion. There was a lymph node removed with the tumor itself size about 1.5 cm with extranodal extension present. 1 of 4 level 1 lymph node was involved with malignancy without extranodal extension. 3 additional right neck level 2 lymph nodes were noninvolved and 15 additional right level 2 lymph node were not involved. To right level 3 nodes were negative and 6 right level 4 lymph nodes were negative. stage p T4a, N3B, M0 IVb Started on combined chemoradiation with weekly cisplatin on 04/18/2021 History of confusion and stroke on 2019, diagnosed with thalamic stroke Follow-up CT scan of head done on December 02, 2020 showed no evidence of acute intracranial abnormality. Stable appearance of multiple scattered old lacunar infarcts. History of tobacco chew Type 2 diabetes Hypertension Plan: Discussed with patient regarding his labs white blood count 4.8 hemoglobin 11 g medical 35.1 platelets 200,000 CMP within normal limits except sodium 131 Clinically, patient doing well with no new signs symptom except generalized weakness and fatigue which could be multifactorial including due to narcotics, his urinalysis was negative for UTI, patient was advised to monitor for narcotic overdose, and maintain hydration and nutrition, will proceed with next weekly dose of cisplatin today and then he will return to clinic in 1 week with CBC CMP and if reasonable for weekly cisplatin concurrent with radiation therapy. Signed By: Eduardo Barraza M.D. <<Signature on File>>
--- NOTE | 2021-05-24 13:53 | ONCRAD TMN_ITS ---
Radiation Oncology Treatment Management Note Patient Name: Carl Gill Date of : 1955 Date of Service: 05/24/2021 Attending Physician: Reji Payne M.D. 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 A wide local excision with hemimandibulectomy, unilateral neck dissection, and reconstruction with an osteocutaneous radial free flap replacement was performed on 11/01/2020. Pathology confirmed the diagnosis of a 6.2 cm moderately differentiated squamous cell carcinoma with a tumor depth of invasion of 4.1 cm and the presence of lymphovascular/perineural invasion. A total of 32 lymph nodes were harvested with two level I lymph nodes harboring metastatic disease (largest metastatic deposit was 1.5 cm of with one lymph node demonstrating extranodal extension). Surgical margins were positive (bone and soft tissue). The patient has received 50 Gy of a prescribed 66 [place] with an intensity modulated radiotherapy plan utilizing a step and shoot treatment technique. He has been prescribed cisplatin (30 mg/m2) weekly during radiotherapy. Upon review of systems, he reported decreased pain associated with increase in oxycodone. On physical examination, the patient weighed 229 lbs. His temperature was 98.4 ???F with a blood pressure of 151/67 mmHg. His pulse was 63 bpm and the respiratory rate was 20. There was no erythema within the treatment valera. Continue post-operative head and neck radiotherapy as planned. Signed by: Dr. Reji Payne 05/24/2021 1:51:44 PM
[2021-05-24 14:56] LABS: Alanine Aminotransferase 9 U/L (0-41); Albumin Level 3.4 g/dL (3.5-5.2); Alkaline Phosphatase 77 IU/L (40-130); Anion Gap 12.3 (5-19); Aspartate Amino Transferase 10 U/L (0-40); Blood Urea Nitrogen 24 mg/dL (8-23); Calcium 8.4 mg/dL (8.5-10.5); Carbon Dioxide 28 mmol/L (22-29); Chloride 92 mmol/L (98-107); Glomerular Filtration Rate 134.4 mL/min (90-130); Glucose 122 mg/dL (65-115); Osmolality Calculated 271 mOsm/kg (285-295); Potassium 4.3 mmol/L (3.5-5.1); Sodium 128 mmol/L (136-145); Total Bilirubin 0.5 mg/dL (0.15-1.2); Total Protein 6.4 g/dL (6.6-8.7)
[2021-05-24 15:06] LABS: Basophils % 0.7 %; Eosinophils # 0.2 10^3/uL (0.0-0.8); Eosinophils % 3.3 %; Hematocrit 34.3 % (42.0-52.0); Hemoglobin 10.6 g/dL (11.7-16.6); Lymphocytes # 0.3 10^3/uL (0.8-4.8); Mean Corpuscular HGB Conc 30.9 g/dL (30.0-36.0); Mean Corpuscular Hemoglobin 27.7 pg (28.0-34.0); Mean Corpuscular Volume 89.8 fl (80-94); Mean Platelet Volume 10.1 fL (7.4-10.4); Monocytes # 0.6 10^3/uL (0.2-0.9); Monocytes % 12.1 %; Neutrophils % 76.7 %; Nucleated Red Blood Cells % 0 %; Platelet Count 241 10^3/cmm (130-400); Red Blood Count 3.82 10^6/uL (4.1-5.3); Red Cell Distribution Width 16.1 % (12.1-15.1); White Blood Count 4.6 10^3/uL (4.0-10.0)
--- NOTE | 2021-05-25 11:47 | ONC FU_ITS ---
Dr. Barraza follow up note Patient: Carl Gill Unit #: [id number]: 1955 Dicatated By: Eduardo Barraza M.D.Date of Visit:May 25, 2021 Onc Med Follow-up/Prog Note History of Present Illness: Mr. Carl Gill, is a 66-year-old gentleman with a history of right oral cavity pain and swelling since June or July 2020, as per patient he was prescribed antibiotics on multiple occasion without any improvement rather pain and swelling in his right oral cavity continue to progress eventually he was referred to ENT for evaluation CT scan of the head and neck done on September 30, 2020 showed soft tissue lesion adjacent to the right mandible causing destruction of the right mandible and an associated pathological fracture and there was no obvious lymphadenopathy in the neck, and on November 01, 2020 he underwent right hemimandibulectomy with right modified radical neck dissection of levels 1 through 5 along with placement of tracheostomy and with right forearm free flap and right pectoralis major flap for reconstruction. 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 1 of 4 level 1A lymph node was involved with malignancy without extranodal extension. 3 additional right neck level 2 lymph nodes were none involved and 15 additional right level 2A lymph nodes that were not involved. To right level 3 lymph nodes were negative and 6 right level 4 lymph node were negative. Primary site was 6.2 cm in size invasive squamous cell carcinoma, moderately differentiated, invading through cortical bone with positive soft tissue margins and bone margins. There was perineural invasion as well as lymphovascular space invasion. There was a lymph node removed with the tumor itself was 1.5 cm in size with extranodal extension present. Overall stage was T4A, N3B, M0 Patient also had episode of stroke just before [place] involving his thalamus, now has recovered and on aspirin and Plavix. Past medical history significant for hypertension, hyperlipidemia, obesity, type 2 diabetes Patient denies smoking but he used to chew tobacco up to diagnosis Denies any mouth sores, denies any dysphagia, denies any chest pain denies any shortness of breath denies any jaundice denies any new bony pains denies any hemoptysis or hematemesis. Started on combined chemoradiation with weekly cisplatin on 04/18/2021 Came for follow-up, denies any specific complaint except some time grogginess and mild confusion but otherwise alert and oriented x3, no fever chills, no nausea or vomiting, no diarrhea constipation, right upper neck pain and throat pain is under control with current narcotic medication given by radiation oncology, as per patient he is getting enough hydration via G-tube. Otherwise tolerating combined chemoradiation with weekly cisplatin reasonably well. Medications: amLODIPine Besylate 1 Tablet (of 5 mg) Oral daily, Aspirin 81 1 Tablet (of 81 mg) Tablet, chewable Oral every am, Atorvastatin Calcium 1 Tablet (of 40 mg) Oral daily, B-12 1 Caplet (of 1000 mcg) Capsule Oral every am, Cholecalciferol 1 Tablet (of 125 mcg ) Oral daily, Clopidogrel Bisulfate 1 Tablet (of 75 mg) Oral daily, Doxycycline Hyclate (100 mg) Capsule Oral b.i.d., Escitalopram Oxalate 1 Tablet (of 10 mg) Oral every am, Glucerna 1.5 Luis Manuel 400 mL Liquid Oral t.i.d. & at bedtime, Lisinopril 1 Tablet (of 5 mg) Oral every am, Melatonin 2 Caplet (of 3 mg) Capsule Oral daily, Metoprolol Tartrate 1 Tablet (of 50 mg) Oral b.i.d., Omeprazole 20 mL (of 2 mg/mL) Suspension Oral, oxyCODONE-Acetaminophen 2 Tablet (of 10-325 mg) Tablet Oral q 4 to 6 hours PRN, Polyethylene Glycol 1 Scoop(s) Powder PRN, QUEtiapine Fumarate 0.5 Tablet (of 25 mg) Oral b.i.d., Senna Plus 2 Caplet (of 50-8.6 mg) Capsule Oral daily Allergies: No Known Allergies. Review of Systems: Review of Systems is not available for this patient. Vital Signs: Performed on May 25, 2021 08:42 Height - 72.00 in Weight - 229.2 lbs (LOW) BSA - 2.26 sq.m BMI - 31.09 (HIGH) Temperature - 97.4 F (LOW) Pulse - 65 /min Respiration - 18 /min BP - 151/71 mm(hg) (HIGH) O2 Sat - 97 % Pain - 3 Fatigue - 4 Performance Status: 1 - No physically strenuous activity, but ambulatory and able to carry out light or sedentary work (e.g. office work, light house work). (ECOG) Physical Examination: Respiratory - Lungs are clear to auscultation, Cardiovascular - Regular rate and rhythm of heart, Abdomen - Soft, bowel sounds present G-tube site clear, Extremities - No visible edema. Lab/Imaging: Test performed on Apr 18, 2021 09:04 Sodium 132 mmol/L Potassium 4.6 mmol/L Chloride 96 mmol/L CO2 28 mmol/L Anion Gap 12.6 BUN 41 mg/dL Creatinine 0.8 mg/dL Cr Clearance (Est) 120.1500 mL/min eGFR 96.4 mL/min Glucose 128 mg/dL Osmolality - Calculated 286 mOsm/kg Calcium 8.9 mg/dL Protein, Total 6.8 g/dL Albumin 3.5 g/dL Globulin 3.3 g/dL Bilirubin, Total 0.6 mg/dL ALT (SGPT) 33 U/L AST (SGOT) 24 U/L Alkaline Phosphatase 83 IU/L WBC 6.9 10 3/uL RBC 4.37 10 6/uL HGB 12.0 g/dL HCT 38.6 % MCV 88.3 fL MCH 27.5 pg MCHC 31.1 g/dL RDW 13.4 % Platelet Count 303 10 3/cmm MPV 10.9 fL Neutrophils 4.48 10 3/uL Lymphocytes 1.0 10 3/uL Monocytes 0.7 10 3/uL Eosinophils 0.7 10 3/uL Basophils 0.1 10 3/uL Neutrophil % 64.7 % Lymphocyte % 14.5 % Monocyte % 9.4 % Eosinophil % 10.1 % Basophils % 1.2 % NRBC % 0 % Impression: Invasive squamous cell carcinoma, moderately differentiated status post right hemimandibulectomy with right modified radical neck dissection of levels 1 through 5 along with placement of the tracheostomy and a right forearm free flap and right pectoralis major flap for reconstruction. Done on November 01, 2020 in [facility] final pathology report showed 6.2 cm size invasive squamous cell carcinoma moderately differentiated p16 negative, invading through the cortical bone with a positive margin and positive soft tissue margin there was perineural invasion as well as lymphovascular space invasion. There was a lymph node removed with the tumor itself size about 1.5 cm with extranodal extension present. 1 of 4 level 1 lymph node was involved with malignancy without extranodal extension. 3 additional right neck level 2 lymph nodes were noninvolved and 15 additional right level 2 lymph node were not involved. To right level 3 nodes were negative and 6 right level 4 lymph nodes were negative. stage p T4a, N3B, M0 IVb Started on combined chemoradiation with weekly cisplatin on 04/18/2021 History of confusion and stroke on 2019, diagnosed with thalamic stroke Follow-up CT scan of head done on December 02, 2020 showed no evidence of acute intracranial abnormality. Stable appearance of multiple scattered old lacunar infarcts. History of tobacco chew Type 2 diabetes Hypertension Plan: Discussed with patient regarding his labs white blood count 4.6 hemoglobin 10.6 hematocrit 34.3 platelets 241,000 CMP within normal limits sodium 128 Clinically, patient is doing reasonably well with no new signs symptom except mild confusion or grogginess which could be due to narcotics, patient was advised to cut down some dose but discuss with radiation oncology first. And also advised to maintain hydration, may use sugar-free Gatorade or electrolyte infused water as his follow-up CMP shows mild hyponatremia which could be due to excessive free water. We will proceed with his next weekly dose of cisplatin concurrent with radiation therapy today and then he will return to clinic in 1 week with CBC CMP and as per patient he has 6 more radiation doses to go so next week chemotherapy would be the last dose. Patient was also advised in case he cannot maintain hydration via G-tube then he can try intravenous hydration., On as-needed basis Signed By: Eduardo Barraza M.D. <<Signature on File>>
[2021-05-25] MEDS: fosaprepitant 150 MG in sodium chloride 0.9% 150 ML 300 MG IV (11:50)
[2021-05-25] MEDS: sodium chloride 0.9% 250 ML 75 ML IV (11:50)
[2021-05-25] MEDS: palonosetron 0.25 mg/5 mL SDV IV (12:25)
[2021-05-25] MEDS: potassium chloride 20 MEQ in sodium chloride 0.9% 500 ML 250 MEQ IV (13:50)
[2021-05-25] MEDS: FUROsemide 10 mg/mL SDV 2mL 20 MG IV (13:52)
[2021-05-31 13:56] LABS: Basophils % 0.5 %; Eosinophils # 0.1 10^3/uL (0.0-0.8); Eosinophils % 1.9 %; Hemoglobin 10.4 g/dL (11.7-16.6); Lymphocytes # 0.3 10^3/uL (0.8-4.8); Lymphocytes % 7.9 %; Mean Corpuscular HGB Conc 31.5 g/dL (30.0-36.0); Mean Corpuscular Hemoglobin 27.7 pg (28.0-34.0); Mean Platelet Volume 9.1 fL (7.4-10.4); Monocytes # 0.5 10^3/uL (0.2-0.9); Monocytes % 14.4 %; Neutrophils # 2.77 10^3/uL (1.8-7.7); Neutrophils % 75.3 %; Nucleated Red Blood Cells % 0 %; Platelet Count 279 10^3/cmm (130-400); Red Blood Count 3.75 10^6/uL (4.1-5.3); Red Cell Distribution Width 16.6 % (12.1-15.1); White Blood Count 3.7 10^3/uL (4.0-10.0)
[2021-05-31 14:28] LABS: Alanine Aminotransferase 10 U/L (0-41); Albumin Level 3.3 g/dL (3.5-5.2); Alkaline Phosphatase 83 IU/L (40-130); Anion Gap 14.5 (5-19); Aspartate Amino Transferase 12 U/L (0-40); Blood Urea Nitrogen 26 mg/dL (8-23); Calcium 8.6 mg/dL (8.5-10.5); Carbon Dioxide 26 mmol/L (22-29); Chloride 90 mmol/L (98-107); Globulin 3.3 g/dL (1.3-4.6); Glomerular Filtration Rate 134.4 mL/min (90-130); Glucose 164 mg/dL (65-115); Osmolality Calculated 270 mOsm/kg (285-295); Potassium 4.5 mmol/L (3.5-5.1); Sodium 126 mmol/L (136-145); Total Bilirubin 0.4 mg/dL (0.15-1.2); Total Protein 6.6 g/dL (6.6-8.7)
[2021-06-01] MEDS: palonosetron 0.25 mg/5 mL SDV IVP (11:57)
[2021-06-01] MEDS: FUROsemide 10 mg/mL SDV 2mL 20 MG IV (13:50)
[2021-06-01] MEDS: sodium chlor 0.9% + KCl 20 mEq 20 MEQ/1,000 ML BAG 500 MEQ IV (13:51)
[2021-06-02] MEDS: sodium chloride 0.9% 250 ML 75 ML IV (10:09)
--- NOTE | 2021-06-05 20:13 | ONC FU_ITS ---
Dr. Barraza follow up note Patient: Carl Gill Unit #: [id number]: 1955 Dicatated By: Eduardo Barraza M.D.Date of Visit:Jun 01, 2021 Onc Med Follow-up/Prog Note History of Present Illness: Mr. Carl Gill, is a 66-year-old gentleman with a history of right oral cavity pain and swelling since June or July 2020, as per patient he was prescribed antibiotics on multiple occasion without any improvement rather pain and swelling in his right oral cavity continue to progress eventually he was referred to ENT for evaluation CT scan of the head and neck done on September 30, 2020 showed soft tissue lesion adjacent to the right mandible causing destruction of the right mandible and an associated pathological fracture and there was no obvious lymphadenopathy in the neck, and on November 01, 2020 he underwent right hemimandibulectomy with right modified radical neck dissection of levels 1 through 5 along with placement of tracheostomy and with right forearm free flap and right pectoralis major flap for reconstruction. 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 1 of 4 level 1A lymph node was involved with malignancy without extranodal extension. 3 additional right neck level 2 lymph nodes were none involved and 15 additional right level 2A lymph nodes that were not involved. To right level 3 lymph nodes were negative and 6 right level 4 lymph node were negative. Primary site was 6.2 cm in size invasive squamous cell carcinoma, moderately differentiated, invading through cortical bone with positive soft tissue margins and bone margins. There was perineural invasion as well as lymphovascular space invasion. There was a lymph node removed with the tumor itself was 1.5 cm in size with extranodal extension present. Overall stage was T4A, N3B, M0 Patient also had episode of stroke just before [place] involving his thalamus, now has recovered and on aspirin and Plavix. Past medical history significant for hypertension, hyperlipidemia, obesity, type 2 diabetes Patient denies smoking but he used to chew tobacco up to diagnosis Denies any mouth sores, denies any dysphagia, denies any chest pain denies any shortness of breath denies any jaundice denies any new bony pains denies any hemoptysis or hematemesis. Started on combined chemoradiation with weekly cisplatin on 04/18/2021 Came for follow-up, denies any specific complaint except persistent discomfort in the right upper face but under control with current pain medication, tolerating combined chemoradiation with weekly cisplatin well, no fever chills, no nausea or vomiting, no diarrhea or constipation, no dysphagia, no hemoptysis or hematemesis Medications: amLODIPine Besylate 1 Tablet (of 5 mg) Oral daily, Aspirin 81 1 Tablet (of 81 mg) Tablet, chewable Oral every am, Atorvastatin Calcium 1 Tablet (of 40 mg) Oral daily, B-12 1 Caplet (of 1000 mcg) Capsule Oral every am, Cholecalciferol 1 Tablet (of 125 mcg ) Oral daily, Clopidogrel Bisulfate 1 Tablet (of 75 mg) Oral daily, Doxycycline Hyclate (100 mg) Capsule Oral b.i.d., Escitalopram Oxalate 1 Tablet (of 10 mg) Oral every am, Glucerna 1.5 Luis Manuel 400 mL Liquid Oral t.i.d. & at bedtime, Lisinopril 1 Tablet (of 5 mg) Oral every am, Melatonin 2 Caplet (of 3 mg) Capsule Oral daily, Metoprolol Tartrate 1 Tablet (of 50 mg) Oral b.i.d., Omeprazole 20 mL (of 2 mg/mL) Suspension Oral, oxyCODONE-Acetaminophen 2 Tablet (of 10-325 mg) Tablet Oral q 4 to 6 hours PRN, Polyethylene Glycol 1 Scoop(s) Powder PRN, QUEtiapine Fumarate 0.5 Tablet (of 25 mg) Oral b.i.d., Senna Plus 2 Caplet (of 50-8.6 mg) Capsule Oral daily Allergies: No Known Allergies. Review of Systems: Review of Systems is not available for this patient. Vital Signs: Performed on Jun 01, 2021 08:58 Height - 72.00 in Weight - 220.8 lbs (HIGH) BSA - 2.22 sq.m BMI - 29.95 Temperature - 97.3 F (LOW) Pulse - 67 /min Respiration - 18 /min BP - 165/65 mm(hg) (HIGH) O2 Sat - 97 % Pain - 0 Performance Status: 0 - Fully active, able to carry on all predisease activities without restrictions. (ECOG) Physical Examination: Respiratory - Lungs are clear to auscultation, Cardiovascular - Regular rate and rhythm of heart, Abdomen - Soft, bowel sounds present, G-tube site is clear, Extremities - No visible edema. Lab/Imaging: Test performed on Jun 01, 2021 13:40 Sodium 126 mmol/L Potassium 4.5 mmol/L Chloride 90 mmol/L CO2 26 mmol/L Anion Gap 14.5 BUN 26 mg/dL Creatinine 0.6 mg/dL Cr Clearance (Est) 185.80 mL/min eGFR 134.4 mL/min Glucose 164 mg/dL Osmolality - Calculated 270 mOsm/kg Calcium 8.6 mg/dL Protein, Total 6.6 g/dL Albumin 3.3 g/dL Globulin 3.3 g/dL Bilirubin, Total 0.4 mg/dL ALT (SGPT) 10 Units/L AST (SGOT) 12 Units/L Alkaline Phosphatase 83 International Units/L WBC 3.7 10^3/uL RBC 3.75 10^6/uL HGB 10.4 g/dL HCT 33.0 % MCV 88.0 fl MCH 27.7 pg MCHC 31.5 g/dL RDW 16.6 % Platelet Count 279 10^3/uL MPV 9.1 fl Neutrophils 2.77 10^3/uL Lymphocytes 0.3 10^3/uL Monocytes 0.5 10^3/uL Eosinophils 0.1 10^3/uL Basophils 0.0 10^3/uL Neutrophil % 75.3 % Lymphocyte % 7.9 % Monocyte % 14.4 % Eosinophil % 1.9 % Basophils % 0.5 % NRBC 0.0 /100 WBC NRBC % 0 % Impression: Invasive squamous cell carcinoma, moderately differentiated status post right hemimandibulectomy with right modified radical neck dissection of levels 1 through 5 along with placement of the tracheostomy and a right forearm free flap and right pectoralis major flap for reconstruction. Done on November 01, 2020 in [facility] final pathology report showed 6.2 cm size invasive squamous cell carcinoma moderately differentiated p16 negative, invading through the cortical bone with a positive margin and positive soft tissue margin there was perineural invasion as well as lymphovascular space invasion. There was a lymph node removed with the tumor itself size about 1.5 cm with extranodal extension present. 1 of 4 level 1 lymph node was involved with malignancy without extranodal extension. 3 additional right neck level 2 lymph nodes were noninvolved and 15 additional right level 2 lymph node were not involved. To right level 3 nodes were negative and 6 right level 4 lymph nodes were negative. stage p T4a, N3B, M0 IVb Started on combined chemoradiation with weekly cisplatin on 04/18/2021 History of confusion and stroke on 2019, diagnosed with thalamic stroke Follow-up CT scan of head done on December 02, 2020 showed no evidence of acute intracranial abnormality. Stable appearance of multiple scattered old lacunar infarcts. History of tobacco chew Type 2 diabetes Hypertension Plan: Discussed with patient regarding his labs white blood count 3.7 hemoglobin 10.4 hematocrit 33 platelets 279,000 CMP within normal limits except sodium 126 compared to 128 previously Clinically, patient doing reasonably well, his lab work-up is reasonable except persistent mild/moderate hyponatremia probably due to excessive free water, patient was advised to cut down free water via G-tube or supplement with sugar-free Gatorade. We will proceed with his final dose of weekly cisplatin as patient will conclude his radiation therapy in 2 days and then patient return to clinic in 2 weeks with CBC CMP, in the meantime patient was advised to consider hydration on as-needed basis Signed By: Eduardo Barraza M.D. <<Signature on File>>
--- NOTE | 2021-06-15 09:24 | N.ONRD TS_ITS ---
Radiation OncologyTreatment Summary Patient Name: Carl Gill Date of : 1955 Date of Service: 06/03/2021 Attending Physician: Reji Payne M.D. 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 A wide local excision with hemimandibulectomy, unilateral neck dissection, and reconstruction with an osteocutaneous radial free flap replacement was performed on 11/01/2020. Pathology confirmed the diagnosis of a 6.2 cm moderately differentiated squamous cell carcinoma with a tumor depth of invasion of 4.1 cm and the presence of lymphovascular/perineural invasion. A total of 32 lymph nodes were harvested with two level I lymph nodes harboring metastatic disease (largest metastatic deposit was 1.5 cm of with one lymph node demonstrating extranodal extension). Surgical margins were positive (bone and soft tissue). Head and neck radiation therapy was delivered between the dates of April 18, 2021 through June 03, 2021. A prescribed dose of 66 Gy was delivered in 33 fractions encompassing 47 elapsed days. The postoperative bed was treated utilizing an intensity modulated radiotherapy plan with a step and shoot treatment technique. The plan required eight gantry angles (0???, 30???, 60???, 185???, 220???, 260???, 300???, and 340???) replicating an arc. The collimator rotation spanned 0??? to 136??? to minimize MLC excursion. The field sizes measured between 9.3 cm x 18.5 cm to 12.9 cm x 17.5 cm. The SSDs measured a minimum of 84 cm to a maximum of 95.8 cm. The ports delivered 217 MU, 191 MU, 247 MU, 129 MU, 168 MU, 230 MU, 238 MU, and 182 MU corresponding to the gantry angles described. Low energy photons were prescribed. All treatments were performed with the [employer] linear accelerator and an isocentric technique. The dose was calculated by Anisotropic Analytic Algorithm with the plan normalized to deliver 100% of the prescription dose to 95% of the planning target volume. Signed by: Dr. Reji Payne 06/15/2021 9:23:10 AM
== END 2021-06-07 23:59 | disposition home or self-care (01) ==
LOC: ONCMED 05:40
PROVIDERS: Internal Medicine Hematology & Oncology; Absent Provider Radiology Radiation Oncology; PCP Family Medicine; Visit Provider Radiology Radiation Oncology
DX: Z51.0 Encounter for antineoplastic radiation therapy (principal); Z51.11 Encounter for antineoplastic chemotherapy; C41.1 Malignant neoplasm of mandible; E11.9 Type 2 diabetes mellitus without complications; I10 Essential (primary) hypertension; Z86.73 Personal history of transient ischemic attack (TIA), and cerebral infarction without residual deficits; Z87.891 Personal history of nicotine dependence; Z79.899 Other long term (current) drug therapy; T81.89XD Other complications of procedures, not elsewhere classified, subsequent encounter
CPT/HCPCS: 11042; 11043; 36591; 77336; 77386; 80053; 81001; 85025; 96366; 96367; 96375; 96413; 99215; J1100; J1453; J1940; J2469; J3475; J3480; J7030; J7040; J7050; J9060

== ENCOUNTER 2021-06-09 13:42 | Outpatient (CLI) | payer MEDICARE, SELFPAY | END 2021-06-09 13:43 | disposition home or self-care (01) | LOC: WOUND 13:43 | PROVIDERS: PCP Family Medicine; Visit Provider Nurse Practitioner Family | DX: Z09 Encounter for follow-up examination after completed treatment for conditions other than malignant neoplasm (principal) | CPT/HCPCS: 99212 ==

== ENCOUNTER 2021-07-04 06:28 | Outpatient (RCR) | payer MEDICARE, SELFPAY ==
[2021-06-16 12:57] LABS: Basophils % 0.9 %; Eosinophils # 0.1 10^3/uL (0.0-0.8); Eosinophils % 2.1 %; Hematocrit 30.3 % (42.0-52.0); Hemoglobin 9.4 g/dL (11.7-16.6); Lymphocytes # 0.3 10^3/uL (0.8-4.8); Lymphocytes % 9.7 %; Mean Corpuscular Hemoglobin 28.3 pg (28.0-34.0); Mean Corpuscular Volume 91.3 fl (80-94); Mean Platelet Volume 9.4 fL (7.4-10.4); Monocytes # 0.5 10^3/uL (0.2-0.9); Monocytes % 13.6 %; Neutrophils # 2.43 10^3/uL (1.8-7.7); Neutrophils % 73.4 %; Nucleated Red Blood Cells % 0 %; Platelet Count 272 10^3/cmm (130-400); Red Blood Count 3.32 10^6/uL (4.1-5.3); Red Cell Distribution Width 17.7 % (12.1-15.1); White Blood Count 3.3 10^3/uL (4.0-10.0)
[2021-06-16 13:27] LABS: Alanine Aminotransferase 14 U/L (0-41); Albumin Level 3.1 g/dL (3.5-5.2); Alkaline Phosphatase 102 IU/L (40-130); Anion Gap 14.6 (5-19); Aspartate Amino Transferase 13 U/L (0-40); Blood Urea Nitrogen 26 mg/dL (8-23); Calcium 8.8 mg/dL (8.5-10.5); Carbon Dioxide 27 mmol/L (22-29); Chloride 91 mmol/L (98-107); Globulin 3.9 g/dL (1.3-4.6); Glomerular Filtration Rate 112.5 mL/min (90-130); Glucose 154 mg/dL (65-115); Osmolality Calculated 274 mOsm/kg (285-295); Potassium 4.6 mmol/L (3.5-5.1); Sodium 128 mmol/L (136-145); Total Bilirubin 0.3 mg/dL (0.15-1.2)
[2021-06-16 16:27] LABS: Iron 39 ug/dL (59-158); Percent Saturation 17.8 % (20-50); Total Iron Binding Capacity 219 mcg/dl; Unsaturated Iron Binding 180 ug/dL (112-347)
[2021-06-16 16:40] LABS: Ferritin 1060 ng/mL (30-400)
[2021-06-16 19:48] LABS: Vitamin B12 > 2000 pg/mL (232-1245)
[2021-06-17 06:14] LABS: C-Peptide 0.76 ng/mL (0.80-3.85)
--- NOTE | 2021-06-17 13:41 | ONC FU_ITS ---
Dr. Barraza follow up note Patient: Carl Gill Unit #: [id number]: 1955 Dicatated By: Eduardo Barraza M.D.Date of Visit:Jun 16, 2021 Onc Med Follow-up/Prog Note History of Present Illness: Mr. Carl Gill, is a 66-year-old gentleman with a history of right oral cavity pain and swelling since June or July 2020, as per patient he was prescribed antibiotics on multiple occasion without any improvement rather pain and swelling in his right oral cavity continue to progress eventually he was referred to ENT for evaluation CT scan of the head and neck done on September 30, 2020 showed soft tissue lesion adjacent to the right mandible causing destruction of the right mandible and an associated pathological fracture and there was no obvious lymphadenopathy in the neck, and on November 01, 2020 he underwent right hemimandibulectomy with right modified radical neck dissection of levels 1 through 5 along with placement of tracheostomy and with right forearm free flap and right pectoralis major flap for reconstruction. 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 1 of 4 level 1A lymph node was involved with malignancy without extranodal extension. 3 additional right neck level 2 lymph nodes were none involved and 15 additional right level 2A lymph nodes that were not involved. To right level 3 lymph nodes were negative and 6 right level 4 lymph node were negative. Primary site was 6.2 cm in size invasive squamous cell carcinoma, moderately differentiated, invading through cortical bone with positive soft tissue margins and bone margins. There was perineural invasion as well as lymphovascular space invasion. There was a lymph node removed with the tumor itself was 1.5 cm in size with extranodal extension present. Overall stage was T4A, N3B, M0 Patient also had episode of stroke just before involving his thalamus, now has recovered and on aspirin and Plavix. Past medical history significant for hypertension, hyperlipidemia, obesity, type 2 diabetes Patient denies smoking but he used to chew tobacco up to diagnosis Denies any mouth sores, denies any dysphagia, denies any chest pain denies any shortness of breath denies any jaundice denies any new bony pains denies any hemoptysis or hematemesis. Started on combined chemoradiation with weekly cisplatin on 04/18/2021 Came for follow-up, complaining of generalized weakness and fatigue, patient was supposed to go to [place] to see his ENT surgeon but as per patient and family is too weak to travel. Not taking much by mouth still using G-tube and requiring pain medication for pain in his throat and right neck but no fever chills, no swelling, completed combined chemoradiation with weekly cisplatin, Without significant toxicity Medications: amLODIPine Besylate 1 Tablet (of 5 mg) Oral daily, Aspirin 81 1 Tablet (of 81 mg) Tablet, chewable Oral every am, Atorvastatin Calcium 1 Tablet (of 40 mg) Oral daily, B-12 1 Caplet (of 1000 mcg) Capsule Oral every am, Cholecalciferol 1 Tablet (of 125 mcg ) Oral daily, Clopidogrel Bisulfate 1 Tablet (of 75 mg) Oral daily, Doxycycline Hyclate (100 mg) Capsule Oral b.i.d., Escitalopram Oxalate 1 Tablet (of 10 mg) Oral every am, Glucerna 1.5 Luis Manuel 400 mL Liquid Oral t.i.d. & at bedtime, Lisinopril 1 Tablet (of 5 mg) Oral every am, Melatonin 2 Caplet (of 3 mg) Capsule Oral daily, Metoprolol Tartrate 1 Tablet (of 50 mg) Oral b.i.d., Omeprazole 20 mL (of 2 mg/mL) Suspension Oral, oxyCODONE-Acetaminophen 2 Tablet (of 10-325 mg) Tablet Oral q 4 to 6 hours PRN, Polyethylene Glycol 1 Scoop(s) Powder PRN, QUEtiapine Fumarate 0.5 Tablet (of 25 mg) Oral b.i.d., Senna Plus 2 Caplet (of 50-8.6 mg) Capsule Oral daily Allergies: No Known Allergies. Review of Systems: Review of Systems is not available for this patient. Vital Signs: Performed on Jun 16, 2021 14:18 Height - 72.00 in Weight - 214 lbs (LOW) BSA - 2.19 sq.m BMI - 29.02 Temperature - 97.6 F (LOW) Pulse - 58 /min (LOW) Respiration - 18 /min BP - 118/70 mm(hg) O2 Sat - 98 % Pain - 4 Fatigue - 8 Performance Status: 2 - Ambulatory/capable of all self-care, unable to perform any work activities. Up and about more than 50% of waking hours. (ECOG) Physical Examination: ENMT - Postsurgical changes in the right neck, dry oral mucosa, poor oral hygiene, Respiratory - Lungs are clear to auscultation, Cardiovascular - Regular rate and rhythm of heart, Abdomen - Soft, bowel sounds present, G-tube site clean, Extremities - No visible edema. Lab/Imaging: Test performed on Jun 01, 2021 13:40 Sodium 126 mmol/L Potassium 4.5 mmol/L Chloride 90 mmol/L CO2 26 mmol/L Anion Gap 14.5 BUN 26 mg/dL Creatinine 0.6 mg/dL Cr Clearance (Est) 185.80 mL/min eGFR 134.4 mL/min Glucose 164 mg/dL Osmolality - Calculated 270 mOsm/kg Calcium 8.6 mg/dL Protein, Total 6.6 g/dL Albumin 3.3 g/dL Globulin 3.3 g/dL Bilirubin, Total 0.4 mg/dL ALT (SGPT) 10 Units/L AST (SGOT) 12 Units/L Alkaline Phosphatase 83 International Units/L WBC 3.7 10^3/uL RBC 3.75 10^6/uL HGB 10.4 g/dL HCT 33.0 % MCV 88.0 fl MCH 27.7 pg MCHC 31.5 g/dL RDW 16.6 % Platelet Count 279 10^3/uL MPV 9.1 fl Neutrophils 2.77 10^3/uL Lymphocytes 0.3 10^3/uL Monocytes 0.5 10^3/uL Eosinophils 0.1 10^3/uL Basophils 0.0 10^3/uL Neutrophil % 75.3 % Lymphocyte % 7.9 % Monocyte % 14.4 % Eosinophil % 1.9 % Basophils % 0.5 % NRBC 0.0 /100 WBC NRBC % 0 % Impression: Invasive squamous cell carcinoma, moderately differentiated status post right hemimandibulectomy with right modified radical neck dissection of levels 1 through 5 along with placement of the tracheostomy and a right forearm free flap and right pectoralis major flap for reconstruction. Done on November 01, 2020 in [facility] final pathology report showed 6.2 cm size invasive squamous cell carcinoma moderately differentiated p16 negative, invading through the cortical bone with a positive margin and positive soft tissue margin there was perineural invasion as well as lymphovascular space invasion. There was a lymph node removed with the tumor itself size about 1.5 cm with extranodal extension present. 1 of 4 level 1 lymph node was involved with malignancy without extranodal extension. 3 additional right neck level 2 lymph nodes were noninvolved and 15 additional right level 2 lymph node were not involved. To right level 3 nodes were negative and 6 right level 4 lymph nodes were negative. stage p T4a, N3B, M0 IVb Started on combined chemoradiation with weekly cisplatin on 04/18/2021 History of confusion and stroke on 2019, diagnosed with thalamic stroke Follow-up CT scan of head done on December 02, 2020 showed no evidence of acute intracranial abnormality. Stable appearance of multiple scattered old lacunar infarcts. History of tobacco chew Type 2 diabetes Hypertension Plan: . Discussed with patient regarding his labs white blood count 3.3 hemoglobin 9 4 hematocrit 30.3 platelets 272,000 ANC 2430 CMP within normal limit except sodium 128 Clinically, patient is a mild to moderate distress due to persistent right neck pain but under control with current pain medication patient is not tolerating by mouth still using G-tube efficiently. His follow-up lab work-up shows persistent mild hyponatremia probably due to excessive free water, patient was advised to use sugar-free Gatorade. As far as generalized weakness and fatigue is concerned probably multifactorial including narcotics and progressive anemia, on B12 supplement, will do anemia work-up including iron studies and then he will return to clinic in 2 weeks with CBC CMP and patient was advised to maintain hydration and if needed we can consider intravenous hydration on as needed Basis. Signed By: Eduardo Barraza M.D. <<Signature on File>>
[2021-06-29 12:58] LABS: Basophils % 0.4 %; Eosinophils # 0.1 10^3/uL (0.0-0.8); Eosinophils % 1.2 %; Hematocrit 28.9 % (42.0-52.0); Hemoglobin 8.7 g/dL (11.7-16.6); Lymphocytes # 0.5 10^3/uL (0.8-4.8); Lymphocytes % 10.2 %; Mean Corpuscular HGB Conc 30.1 g/dL (30.0-36.0); Mean Corpuscular Hemoglobin 28.4 pg (28.0-34.0); Mean Corpuscular Volume 94.4 fl (80-94); Mean Platelet Volume 9.8 fL (7.4-10.4); Monocytes # 0.7 10^3/uL (0.2-0.9); Neutrophils # 3.75 10^3/uL (1.8-7.7); Neutrophils % 74.8 %; Nucleated Red Blood Cells % 0 %; Platelet Count 417 10^3/cmm (130-400); Red Blood Count 3.06 10^6/uL (4.1-5.3); Red Cell Distribution Width 18.9 % (12.1-15.1)
[2021-06-29 13:29] LABS: Alanine Aminotransferase 14 U/L (0-41); Alkaline Phosphatase 93 IU/L (40-130); Anion Gap 13.7 (5-19); Aspartate Amino Transferase 14 U/L (0-40); Blood Urea Nitrogen 24 mg/dL (8-23); Calcium 8.8 mg/dL (8.5-10.5); Carbon Dioxide 26 mmol/L (22-29); Chloride 95 mmol/L (98-107); Globulin 3.7 g/dL (1.3-4.6); Glomerular Filtration Rate 112.5 mL/min (90-130); Glucose 134 mg/dL (65-115); Osmolality Calculated 276 mOsm/kg (285-295); Potassium 4.7 mmol/L (3.5-5.1); Sodium 130 mmol/L (136-145); Total Bilirubin 0.3 mg/dL (0.15-1.2); Total Protein 6.7 g/dL (6.6-8.7)
--- NOTE | 2021-06-29 15:24 | ONC FU_ITS ---
Dr. Barraza follow up note Patient: Carl Gill Unit #: [id number]: 1955 Dicatated By: Eduardo Barraza M.D.Date of Visit:Jun 29, 2021 Onc Med Follow-up/Prog Note History of Present Illness: Mr. Carl Gill, is a 66-year-old gentleman with a history of right oral cavity pain and swelling since June or July 2020, as per patient he was prescribed antibiotics on multiple occasion without any improvement rather pain and swelling in his right oral cavity continue to progress eventually he was referred to ENT for evaluation CT scan of the head and neck done on September 30, 2020 showed soft tissue lesion adjacent to the right mandible causing destruction of the right mandible and an associated pathological fracture and there was no obvious lymphadenopathy in the neck, and on November 01, 2020 he underwent right hemimandibulectomy with right modified radical neck dissection of levels 1 through 5 along with placement of tracheostomy and with right forearm free flap and right pectoralis major flap for reconstruction. 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 1 of 4 level 1A lymph node was involved with malignancy without extranodal extension. 3 additional right neck level 2 lymph nodes were none involved and 15 additional right level 2A lymph nodes that were not involved. To right level 3 lymph nodes were negative and 6 right level 4 lymph node were negative. Primary site was 6.2 cm in size invasive squamous cell carcinoma, moderately differentiated, invading through cortical bone with positive soft tissue margins and bone margins. There was perineural invasion as well as lymphovascular space invasion. There was a lymph node removed with the tumor itself was 1.5 cm in size with extranodal extension present. Overall stage was T4A, N3B, M0 Patient also had episode of stroke just before involving his thalamus, now has recovered and on aspirin and Plavix. Past medical history significant for hypertension, hyperlipidemia, obesity, type 2 diabetes Patient denies smoking but he used to chew tobacco up to diagnosis Denies any mouth sores, denies any dysphagia, denies any chest pain denies any shortness of breath denies any jaundice denies any new bony pains denies any hemoptysis or hematemesis. Started on combined chemoradiation with weekly cisplatin on 04/18/2021 Came for follow-up, complaining of right neck/facial pain but under control with current pain medication, patient take two Percocet in the morning and 2 in the evening and then 1 tablet twice a day in between, with that his pain is under control but as per , off and on he gets confused. But patient denies. Patient was supposed to see his ENT physician in [facility] but because of transportation issue, he could not, patient was encouraged to see his ENT physician for thorough evaluation of right neck and face for persistent right neck/facial pain, if it shows obvious abnormality then we will refer him to pain clinic for chronic pain management. Medications: amLODIPine Besylate 1 Tablet (of 5 mg) Oral daily, Aspirin 81 1 Tablet (of 81 mg) Tablet, chewable Oral every am, Atorvastatin Calcium 1 Tablet (of 40 mg) Oral daily, B-12 1 Caplet (of 1000 mcg) Capsule Oral every am, Cholecalciferol 1 Tablet (of 125 mcg ) Oral daily, Clopidogrel Bisulfate 1 Tablet (of 75 mg) Oral daily, Doxycycline Hyclate (100 mg) Capsule Oral b.i.d., Escitalopram Oxalate 1 Tablet (of 10 mg) Oral every am, Glucerna 1.5 Luis Manuel 400 mL Liquid Oral t.i.d. & at bedtime, Lisinopril 1 Tablet (of 5 mg) Oral every am, Melatonin 2 Caplet (of 3 mg) Capsule Oral daily, Metoprolol Tartrate 1 Tablet (of 50 mg) Oral b.i.d., Omeprazole 20 mL (of 2 mg/mL) Suspension Oral, oxyCODONE-Acetaminophen 2 Tablet (of 10-325 mg) Tablet Oral q 4 to 6 hours PRN, Polyethylene Glycol 1 Scoop(s) Powder PRN, QUEtiapine Fumarate 0.5 Tablet (of 25 mg) Oral b.i.d., Senna Plus 2 Caplet (of 50-8.6 mg) Capsule Oral daily Allergies: No Known Allergies. Review of Systems: Review of Systems is not available for this patient. Vital Signs: Performed on Jun 29, 2021 14:46 Height - 72.00 in Weight - 214.2 lbs (HIGH) BSA - 2.19 sq.m BMI - 29.05 Temperature - 96.6 F (LOW) Pulse - 63 /min Respiration - 18 /min BP - 126/66 mm(hg) O2 Sat - 97 % Pain - 0 Fatigue - 8 Performance Status: 2 - Ambulatory/capable of all self-care, unable to perform any work activities. Up and about more than 50% of waking hours. (ECOG) Physical Examination: ENMT - Postoperative changes right neck, no mouth sores, no thrush, Respiratory - Lungs are clear to auscultation, Cardiovascular - Regular rate and rhythm of heart, Abdomen - Soft, bowel sounds present, Extremities - No visible edema. Lab/Imaging: Test performed on Jun 01, 2021 13:40 Sodium 126 mmol/L Potassium 4.5 mmol/L Chloride 90 mmol/L CO2 26 mmol/L Anion Gap 14.5 BUN 26 mg/dL Creatinine 0.6 mg/dL Cr Clearance (Est) 185.80 mL/min eGFR 134.4 mL/min Glucose 164 mg/dL Osmolality - Calculated 270 mOsm/kg Calcium 8.6 mg/dL Protein, Total 6.6 g/dL Albumin 3.3 g/dL Globulin 3.3 g/dL Bilirubin, Total 0.4 mg/dL ALT (SGPT) 10 Units/L AST (SGOT) 12 Units/L Alkaline Phosphatase 83 International Units/L WBC 3.7 10^3/uL RBC 3.75 10^6/uL HGB 10.4 g/dL HCT 33.0 % MCV 88.0 fl MCH 27.7 pg MCHC 31.5 g/dL RDW 16.6 % Platelet Count 279 10^3/uL MPV 9.1 fl Neutrophils 2.77 10^3/uL Lymphocytes 0.3 10^3/uL Monocytes 0.5 10^3/uL Eosinophils 0.1 10^3/uL Basophils 0.0 10^3/uL Neutrophil % 75.3 % Lymphocyte % 7.9 % Monocyte % 14.4 % Eosinophil % 1.9 % Basophils % 0.5 % NRBC 0.0 /100 WBC NRBC % 0 % Impression: Invasive squamous cell carcinoma, moderately differentiated status post right hemimandibulectomy with right modified radical neck dissection of levels 1 through 5 along with placement of the tracheostomy and a right forearm free flap and right pectoralis major flap for reconstruction. Done on November 01, 2020 in [facility] final pathology report showed 6.2 cm size invasive squamous cell carcinoma moderately differentiated p16 negative, invading through the cortical bone with a positive margin and positive soft tissue margin there was perineural invasion as well as lymphovascular space invasion. There was a lymph node removed with the tumor itself size about 1.5 cm with extranodal extension present. 1 of 4 level 1 lymph node was involved with malignancy without extranodal extension. 3 additional right neck level 2 lymph nodes were noninvolved and 15 additional right level 2 lymph node were not involved. To right level 3 nodes were negative and 6 right level 4 lymph nodes were negative. stage p T4a, N3B, M0 IVb Started on combined chemoradiation with weekly cisplatin on 04/18/2021 History of confusion and stroke on Chi [id number], diagnosed with thalamic stroke Follow-up CT scan of head done on December 02, 2020 showed no evidence of acute intracranial abnormality. Stable appearance of multiple scattered old lacunar infarcts. History of tobacco chew Type 2 diabetes Hypertension Plan: Discussed with patient regarding his labs white blood count five hemoglobin 8.7 compared to 10.4 g on June 01, 2021 hematocrit 28.9 platelets 417,000 CMP within normal limit except sodium 130 and his anemia work-up done recently showed iron saturation 17.8% iron 39, both are low but his ferritin is 1060 which could be due to acute phase reactant and his B12 more than 2000, etiology of iron deficiency anemia could be due to chronic GI blood loss from G-tube site or nutritional as patient is relying on G-tube feeding. At this point we will consider Injectafer 750 mg IV weekly x2 for iron deficiency anemia and follow his hemoglobin Patient will return to clinic 1 month after second dose of Injectafer with CBC and iron studies Signed By: Eduardo Barraza M.D. <<Signature on File>>
[2021-07-04] MEDS: ferric carboxy (IVPB) 750 MG in sodium chloride 0.9% (100 ml) 100 ML 460 MG IV (13:20)
== END 2021-07-07 23:59 | disposition home or self-care (01) ==
LOC: ONCMED 06:28
PROVIDERS: Absent Provider Radiology Radiation Oncology; PCP Family Medicine; Visit Provider Internal Medicine Hematology & Oncology
DX: Z08 Encounter for follow-up examination after completed treatment for malignant neoplasm (principal); Z85.89 Personal history of malignant neoplasm of other organs and systems; D50.0 Iron deficiency anemia secondary to blood loss (chronic); Z86.73 Personal history of transient ischemic attack (TIA), and cerebral infarction without residual deficits; Z87.891 Personal history of nicotine dependence; E11.9 Type 2 diabetes mellitus without complications; I10 Essential (primary) hypertension; Z79.899 Other long term (current) drug therapy; Z92.21 Personal history of antineoplastic chemotherapy; Z92.3 Personal history of irradiation
CPT/HCPCS: 36591; 80053; 82607; 82728; 83519; 83540; 83550; 84681; 85025; 96365; 99214; J1439

== ENCOUNTER 2021-07-11 06:37 | Outpatient (RCR) | payer MEDICARE, SELFPAY ==
[2021-07-11] MEDS: ferric carboxy (IVPB) 750 MG in sodium chloride 0.9% (100 ml) 100 ML 460 MG IV (13:17)
== END 2021-08-07 23:59 | disposition home or self-care (01) ==
LOC: ONCMED 06:37
PROVIDERS: PCP Family Medicine; Visit Provider Internal Medicine Hematology & Oncology
DX: D50.9 Iron deficiency anemia, unspecified (principal)
CPT/HCPCS: 96365; J1439

== ENCOUNTER 2021-08-12 06:33 | Outpatient (RCR) | payer MEDICARE, SELFPAY ==
[2021-08-12 09:51] LABS: Basophils % 0.3 %; Eosinophils # 0.1 10^3/uL (0.0-0.8); Eosinophils % 0.8 %; Hematocrit 31.4 % (42.0-52.0); Hemoglobin 9.8 g/dL (11.7-16.6); Lymphocytes # 0.3 10^3/uL (0.8-4.8); Lymphocytes % 2.5 %; Mean Corpuscular HGB Conc 31.2 g/dL (30.0-36.0); Mean Corpuscular Hemoglobin 28.7 pg (28.0-34.0); Mean Corpuscular Volume 91.8 fl (80-94); Mean Platelet Volume 9.6 fL (7.4-10.4); Neutrophils # 9.21 10^3/uL (1.8-7.7); Neutrophils % 87.1 %; Nucleated Red Blood Cells % 0 %; Platelet Count 334 10^3/cmm (130-400); Red Blood Count 3.42 10^6/uL (4.1-5.3); Red Cell Distribution Width 15.1 % (12.1-15.1); White Blood Count 10.6 10^3/uL (4.0-10.0)
[2021-08-12 10:13] LABS: Alanine Aminotransferase 32 U/L (0-41); Albumin Level 3.2 g/dL (3.5-5.2); Alkaline Phosphatase 103 IU/L (40-130); Anion Gap 15.6 (5-19); Aspartate Amino Transferase 20 U/L (0-40); Blood Urea Nitrogen 26 mg/dL (8-23); Calcium 9.1 mg/dL (8.5-10.5); Carbon Dioxide 28 mmol/L (22-29); Chloride 85 mmol/L (98-107); Globulin 3.8 g/dL (1.3-4.6); Glomerular Filtration Rate 134.4 mL/min (90-130); Glucose 225 mg/dL (65-115); Osmolality Calculated 270 mOsm/kg (285-295); Potassium 4.6 mmol/L (3.5-5.1); Sodium 124 mmol/L (136-145); Total Bilirubin 0.6 mg/dL (0.15-1.2)
[2021-08-12 11:53] LABS: Iron 24 ug/dL (59-158); Percent Saturation 11.2 % (20-50); Total Iron Binding Capacity 213 mcg/dl; Unsaturated Iron Binding 189 ug/dL (112-347)
[2021-08-12 12:06] LABS: Ferritin 2429 ng/mL (30-400)
== END 2021-09-06 23:59 | disposition home or self-care (01) ==
LOC: ONCMED 06:33
PROVIDERS: PCP Family Medicine; Visit Provider Internal Medicine Hematology & Oncology
DX: C41.1 Malignant neoplasm of mandible (principal); D50.9 Iron deficiency anemia, unspecified
CPT/HCPCS: 36591; 80053; 82728; 83540; 83550; 85025